=== PATIENT | female | born 1965 ===

== ENCOUNTER 2018-03-14 23:01 | Inpatient (IN) | payer MEDICAID ==
--- NOTE | 2018-03-15 00:36 | C.PDOC ---
History Of Present Illness 52 year old female brought by family directly from airport from the [facility] for SOB and leg edema for the past 2 weeks. Patient has a Hx of CHF with two valve replacements in the past. She reports good compliance with her lasix, not over drinking diuretic. Denies chest, pain, nausea, or vomiting. <Arsen Egan - Last Filed: 03/15/18 00:44> History Per: Patient History/Exam Limitations: no limitations Onset/Duration Of Symptoms: Days Current Symptoms Are (Timing): Still Present Associated Symptoms: Other (Leg edema). denies: Nausea, Vomiting, Chest Pain Exacerbating Factors: None Alleviating Factors: None Recent travel outside of the [place]: Yes <Arsen Egan - Last Filed: 03/15/18 00:44> <John Olson - Last Filed: 03/15/18 02:19> Time Seen by Provider: 03/14/18 23:29 Chief Complaint (Nursing): Abdominal Pain Past Medical History Reviewed: Historical Data, Nursing Documentation, Vital Signs Vital Signs: Last Vital Signs Temp 98 F 03/14/18 23:07 Pulse 69 03/14/18 23:07 Resp 20 03/14/18 23:07 BP 126/95 H 03/14/18 23:07 Pulse Ox 100 03/14/18 23:07 Family History: States: Unknown Family Hx - Social History Hx Alcohol Use: No Hx Substance Use: No - Immunization History Hx Tetanus Toxoid Vaccination: No Hx Influenza Vaccination: No Hx Pneumococcal Vaccination: No <Arsen Egan - Last Filed: 03/15/18 00:44> Vital Signs: Last Vital Signs Temp 98 F 03/14/18 23:07 Pulse 69 03/14/18 23:07 Resp 20 03/14/18 23:07 BP 126/95 H 03/14/18 23:07 Pulse Ox 100 03/15/18 00:46 <John Olson - Last Filed: 03/15/18 02:19> Review Of Systems Constitutional: Negative for: Fever, Chills Cardiovascular: Negative for: Chest Pain, Palpitations Respiratory: Positive for: Shortness of Breath. Negative for: Cough Gastrointestinal: Negative for: Nausea, Vomiting Musculoskeletal: Positive for: Other (Leg edema) Neurological: Negative for: Weakness, Numbness <Arsen Egan Last Filed: 03/15/18 00:44> Physical Exam - Physical Exam Appears: Other (Mild respiratory distress) Skin: Normal Color, Warm, Dry Head: Atraumatic, Normacephalic Eye(s): bilateral: Normal Inspection Oral Mucosa: Moist Neck: Normal, Supple Chest: Symmetrical, No Tenderness Cardiovascular: Rhythm Regular, JVD Respiratory: Rales, No Rhonchi, No Wheezing Gastrointestinal/Abdominal: Soft, No Tenderness, Other (Bloating) Extremity: Other (Lower extremity 4/4 pitting edema with stasis dermatitis) Pulses: Left Dorsalis Pedis: Normal, Right Dorsalis Pedis: Normal Neurological/Psych: Oriented x3, Normal Speech <Arsen Egan - Last Filed: 03/15/18 00:44> ED Course And Treatment O2 Sat by Pulse Oximetry: 100 (Room air) Pulse Ox Interpretation: Normal - Radiology CXR: Interpreted by [place] CXR Interpretation: Yes: Heart Size (+ megaly), Other (+ CHF) Reevaluation Time: 00:45 Reassessment Condition: Unchanged (pending meds) <Arsen Egan - Last Filed: 03/15/18 00:44> - Laboratory Results Result Diagrams: 03/15/18 00:55 03/15/18 00:55 Lab Results: PT 33.2 SECONDS (9.7-12.2) H 03/15/18 00:55 INR 3.0 03/15/18 00:55 Troponin I 0.0350 ng/mL (0.00-0.120) 03/15/18 00:55 NT-Pro-B Natriuret Pep 946 pg/mL (0-900) H 03/15/18 00:55 Total Bilirubin 4.0 mg/dL (0.2-1.3) H 03/15/18 00:55 AST 67 U/L (14-36) H 03/15/18 00:55 ALT 15 U/L (9-52) 03/15/18 00:55 Alkaline Phosphatase 151 U/L (38-126) H 03/15/18 00:55 Total Protein 7.2 g/dL (6.3-8.3) 03/15/18 00:55 Albumin 4.0 g/dL (3.5-5.0) 03/15/18 00:55 Globulin 3.2 gm/dL (2.2-3.9) 03/15/18 00:55 Albumin/Globulin Ratio 1.2 (1.0-2.1) 03/15/18 00:55 ECG: Interpreted By Me, Viewed By Me ECG Rhythm: Atrial Fibrillation, R BBB ECG Interpretation: No Acute Changes, Abnormal Interpretation Of ECG: atrial fibrillation,RBBB, abnormal tracings. Rate From EC <John Olson - Last Filed: 03/15/18 02:19> Medical Decision Making Medical Decision Making: acute on chronic CHF 20# weight gain from baseline severe cardiomegly- consider card echo to eval for EJF <Arsen Egan - Last Filed: 03/15/18 00:44> Disposition Doctor Will See Patient In The: Hospital Counseled Patient/Family Regarding: Studies Performed - Disposition Disposition Time: 01:00 <Arsen Egan - Last Filed: 03/15/18 00:44> Discussed With DrMarlo: Yuri Mckeon - Disposition Disposition Time: 02:19 <John Olson - Last Filed: 03/15/18 02:19> - Disposition Disposition: HOSPITALIZED Condition: GOOD Forms: [employer] (Romansh) - Clinical Impression Clinical Impression: CHF (congestive heart failure) - Scribe Statement The provider has reviewed the documentation as recorded by the Scribe Justin Wahl All medical record entries made by the Scribe were at my direction and personally dictated by me. I have reviewed the chart and agree that the record accurately reflects my personal performance of the history, physical exam, medical decision making, and the department course for this patient. I have also personally directed, reviewed, and agree with the discharge instructions and disposition. <Arsen Egan - Last Filed: 03/15/18 00:44> Physician Patient Turnover Patient Signed Over To: John Olson Handoff Comments: f/u workup and adm to Hospitalists <Arsen Egan Last Filed: 03/15/18 00:44>
[2018-03-15 00:59] LABS: BASO # 0.1 K/uL (0.0-0.2); BASO % 1.3 % (0.0-2.0); EOS # 0.2 K/uL (0.0-0.7); EOS % 2.2 % (0.0-4.0); HEMOGLOBIN 15.4 g/dL (11.0-16.0); LYMPH # 1.1 K/uL (1.0-4.3); LYMPH % 11.7 % (20.0-40.0); MEAN CELL VOLUME 92.7 fL (81.0-99.0); MEAN CORPUSCULAR HEMOGLOBIN 30.2 pg (27.0-31.0); MEAN CORPUSCULAR HGB CONC 32.6 g/dL (33.0-37.0); MEAN PLATELET VOLUME 9.1 fL (7.2-11.7); MONO # 0.7 K/uL (0.0-0.8); MONO % 7.7 % (0.0-10.0); NEUT # 6.9 K/uL (1.8-7.0); NEUT % 77.1 % (50.0-75.0); NRBC % 0.1 % (0.0-2.0); RBC 5.09 Mil/uL (3.80-5.20)
[2018-03-15 01:16] LABS: BLOOD UREA NITROGEN 14 mg/dL (7-17); CALCIUM 9.1 mg/dl (8.6-10.4); GFR NON-AFRICAN AMERICAN > 60
[2018-03-15 01:17] LABS: ALB/GLOB RATIO 1.2 (1.0-2.1); ALT/SGPT 15 U/L (9-52); AST/SGOT 67 U/L (14-36)
[2018-03-15 01:23] LABS: PROTHROMBIN TIME 33.2 SECONDS (9.7-12.2)
[2018-03-15 01:24] LABS: B-TYPE NATRIURETIC PEPTIDE 946 pg/mL (0-900)
--- NOTE | 2018-03-15 04:26 | CP.PCM.HP ---
<Yunior Burns - Last Filed: 03/15/18 07:22> History of Present Illness - History of Present Illness History of Present Illness: PGY1 H&P for Medicine Hospitalist This is a 52 year old female with PMH of CHF, valve replacement x2, questionable atrial fibrillation, HTN who presents to the ED for 1 week history of worsening abdominal distension, weight gain and bilateral leg edema. Pt reports a chronic cough for many years, which is dry, but recently worsening for the past 1 week, exacerbated by walking. Pt endorses orthopnea for many years as well, requiring 2-3 pillows. She states that she has had a decreased appetite for the past 1 week, but has gained 20 pounds (160 lb to 180 lb). Leg edema is described as increased "liquid" in the bilateral legs with redness, itchiness and a s tretching sensation. Denies fever, chills, chest pain, palpitations, abdominal pain, n/v/d, new socks, skin lotion, falls. She returned from the today, after a more than 3 month trip. As per pt, she has had a thoracentesis in the past (unsure when). PMD: in [place] Cardiology: Dr. Debi Fuentes CTS surgery: Avis Wylie PMH: CHF, mitral and aortic bioprosthetic valve replacement (aortic 2007, mitral 2006), questionable atrial fibrillation, HTN. Denies history of liver problem, hepatitis. PSH: valve replacement x2, cholecystectomy 5 years ago Meds: noncompliant with Losartan/HCTZ 100/25 mg daily, Metoprolol tartrate 50 mg PO BID, Spironolactone 25 mg PO daily. Compliant with Lasix 40 mg daily. She alternates between Warfarin 2.5 mg and 5 mg every other day. Allx:denies FHx: diabetes and heart problems. Father age 90 with diabetes. Mother in an accident. SHx: Born in , moved to [facility] in 1999. denies smoking history, social etoh use, denies drug use including IVDA Had a colonoscopy (unsure when), that was normal as per pt. Present on Admission - Present on Admission Any Indicators Present on Admission: No Past Patient History - Past Social History Smoking Status: Never Smoked - PSYCHIATRIC Hx Substance Use: No - SURGICAL HISTORY Hx Surgeries: No Meds Allergies/Adverse Reactions: Allergies Allergy/AdvReac Type Severity Reaction Status Date / Time No Known Allergies Allergy Unverified 03/14/18 23:11 Physical Exam - Constitutional Appears: Non-toxic, No Acute Distress - Head Exam Head Exam: ATRAUMATIC, NORMAL INSPECTION - Eye Exam Eye Exam: EOMI, Scleral icterus - ENT Exam ENT Exam: Mucous Membranes Dry - Respiratory Exam Respiratory Exam: Rales (at the bases bilaterally). absent: Rhonchi, Wheezes, Respiratory Distress, Stridor - Cardiovascular Exam Cardiovascular Exam: Tachycardia, Irregular Rhythm, JVD, +S1, +S2, Systolic Mur mur (holosystolic murmur, heard loudest in mitral valve area) - GI/Abdominal Exam GI & Abdominal Exam: Distended (ascites), Normal Bowel Sounds, Organomegaly (li vanessa edge is 4 finger breadths from costophrenic angle), Soft, Tenderness (RUQ tenderness). absent: Guarding, Rebound, Rigid - Extremities Exam Extremities exam: Positive for: pedal edema (2+ pitting edema to the shins; with erythema and minimal warmth not alleviated by raising the leg), pedal pulses present (1+ PT pulse bilaterally, DP unable to be palpated due to edema. good capillary refill in distal extremities. 2+ pulses bilateral radial pulses). Negative for: normal inspection - Neurological Exam Neurological exam: Alert, Oriented x3 - Psychiatric Exam Psychiatric exam: Normal Affect, Normal Mood - Skin Skin Exam: Dry, Normal Color, Warm Additional comments: (+) telangiectasias (+) jaundice (+) approximately 5 cm by 3 cm nontender bruise to the left buttocks (+) decreased skin turgor Results - Vital Signs Recent Vital Signs: Last Vital Signs Temp 98.4 F 03/15/18 03:52 Pulse 93 H 03/15/18 03:52 Resp 16 03/15/18 03:52 BP 117/87 03/15/18 03:52 Pulse Ox 96 03/15/18 03:52 - Labs Result Diagrams: 03/15/18 00:55 03/15/18 00:55 Labs: Laboratory Results - last 24 hr 03/15/18 03/15/18 03/15/18 00:55 00:55 00:55 WBC 9.0 RBC 5.09 Hgb 15.4 Hct 47.2 H MCV 92.7 MCH 30.2 MCHC 32.6 L RDW 17.0 H Plt Count 278 MPV 9.1 Neut % (Auto) 77.1 H Lymph % (Auto) 11.7 L [place] % (Auto) 7.7 Eos % (Auto) 2.2 Baso % (Auto) 1.3 Neut # (Auto) 6.9 Lymph # (Auto) 1.1 [place] # (Auto) 0.7 Eos # (Auto) 0.2 Baso # (Auto) 0.1 PT 33.2 H INR 3.0 Sodium 136 Potassium 3.8 Chloride 97 L Carbon Dioxide 29 Anion Gap 14 BUN 14 Creatinine 0.8 Est GFR ( Amer) > 60 Est GFR (Non-Af Amer) > 60 Random Glucose 89 Calcium 9.1 Total Bilirubin 4.0 H AST 67 H ALT 15 Alkaline Phosphatase 151 H Troponin I 0.0350 NT-Pro-B Natriuret Pep 946 H Total Protein 7.2 Albumin 4.0 Globulin 3.2 Albumin/Globulin Ratio 1.2 Assessment & Plan - Assessment and Plan (Free Text) Assessment: This is a 52 year old female with PMH of CHF, valve replacement x2, questionable atrial fibrillation, HTN who presents to the ED for 1 week history of worsening abdominal distension, weight gain and bilateral leg edema. 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 Fuentes for information about pt's cardiac history and management) Slow diuresis Metoprolol tartrate 25 mg PO BID No need for asa as pt is on warfarin F/u CXR Hepatic congestion likely secondary to CHF Tbili is 4.0 AST/ALT/ALP is 67/15/151 BNP is 151 Albumin is 4.0 F/u direct bili F/u hepatic us Afib, likely valvular in nature PTT/INR is 33.2/3.0 Continue with pt's warfarin regimen: 2.5 mg one day, 5 mg the next day Dermatitis of lower extremities; likely candidal in nature Clomitrazole topical BID Continue to monitor GI ppx: no indication at this time VTE ppx contraindicated as pt is on Warfarin Case discussed with Dr. Linda Burns PGY1 <Yuri Mckeon P - Last Filed: 03/15/18 08:22> Results - Vital Signs Recent Vital Signs: Last Vital Signs Temp 98.3 F 03/15/18 07:53 Pulse 88 03/15/18 07:53 Resp 18 03/15/18 07:53 BP 128/86 03/15/18 07:53 Pulse Ox 98 03/15/18 07:53 - Labs Result Diagrams: 03/15/18 00:55 03/15/18 00:55 Labs: Laboratory Results - last 24 hr 03/15/18 03/15/18 03/15/18 00:55 00:55 00:55 WBC 9.0 RBC 5.09 Hgb 15.4 Hct 47.2 H MCV 92.7 MCH 30.2 MCHC 32.6 L RDW 17.0 H Plt Count 278 MPV 9.1 Neut % (Auto) 77.1 H Lymph % (Auto) 11.7 L [place] % (Auto) 7.7 Eos % (Auto) 2.2 Baso % (Auto) 1.3 Neut # (Auto) 6.9 Lymph # (Auto) 1.1 [place] # (Auto) 0.7 Eos # (Auto) 0.2 Baso # (Auto) 0.1 PT 33.2 H INR 3.0 Sodium 136 Potassium 3.8 Chloride 97 L Carbon Dioxide 29 Anion Gap 14 BUN 14 Creatinine 0.8 Est GFR ( Amer) > 60 Est GFR (Non-Af Amer) > 60 Random Glucose 89 Calcium 9.1 Total Bilirubin 4.0 H Direct Bilirubin AST 67 H ALT 15 Alkaline Phosphatase 151 H Troponin I 0.0350 NT-Pro-B Natriuret Pep 946 H Total Protein 7.2 Albumin 4.0 Globulin 3.2 Albumin/Globulin Ratio 1.2 03/15/18 05:01 WBC RBC Hgb Hct MCV MCH MCHC RDW Plt Count MPV Neut % (Auto) Lymph % (Auto) [place] % (Auto) Eos % (Auto) Baso % (Auto) Neut # (Auto) Lymph # (Auto) [place] # (Auto) Eos # (Auto) Baso # (Auto) PT INR Sodium Potassium Chloride Carbon Dioxide Anion Gap BUN Creatinine Est GFR ( Amer) Est GFR (Non-Af Amer) Random Glucose Calcium Total Bilirubin Direct Bilirubin 0.6 H AST ALT Alkaline Phosphatase Troponin I NT-Pro-B Natriuret Pep Total Protein Albumin Globulin Albumin/Globulin Ratio Attending/Attestation - Attestation I have personally seen and examined this patient.: Yes I have fully participated in the care of the patient.: Yes I have reviewed all pertinent clinical information: Yes Notes (Text): 03/15/18 08:22 Assessed patient along with the resident, formulated the plan of care as above, agree with documentation.
--- NOTE | 2018-03-15 07:16 | CP.PCM.PN ---
<Mark Wyatt - Last Filed: 03/15/18 16:06> Subjective - Date & Time of Evaluation Date of Evaluation: 03/15/18 Time of Evaluation: 07:16 - Subjective Subjective: PGY1 Medicine Progress Note for Dr. Nieves Using Official Malaysian translation provided by [employer] #[id number]: Attempted to elicit more information from Patient that pertains to her illness. [place] Patient states she has been feeling the above symptoms for x1 week. Patient states she came here to visit her daughter. However, when asked more about her chronic conditions and/or acute complaints, the Patient continues to respond with vague answers. When Patient is asked "why did you fly if you were feeling sick?" Patient responded "I just got on the plane." Otherwise no acute events overnight. No new complaints. Patient denies chest pain, shortness of breath, nausea, vomiting, fever, chills, diarrhea, headache and/or weakness. Objective - Vital Signs/Intake and Output Vital Signs (last 24 hours): Temp Pulse Resp BP Pulse Ox 98.4 F 93 H 16 117/87 96 03/15/18 03:52 03/15/18 03:52 03/15/18 03:52 03/15/18 03:52 03/15/18 03:52 - Labs Labs: 03/15/18 00:55 03/15/18 00:55 PT 33.2 SECONDS (9.7-12.2) H 03/15/18 00:55 INR 3.0 03/15/18 00:55 - Additional Findings Additional findings: - Constitutional Appears: Non-toxic, No Acute Distress - Head Exam Head Exam: ATRAUMATIC, NORMAL INSPECTION - Eye Exam Eye Exam: EOMI, Scleral icterus - ENT Exam ENT Exam: Mucous Membranes Dry - Respiratory Exam Respiratory Exam: Rales (at the bases bilaterally). absent: Rhonchi, Wheezes, Respiratory Distress, Stridor - Cardiovascular Exam Cardiovascular Exam: Tachycardia, Irregular Rhythm, JVD, +S1, +S2, Systolic Murmur (holosystolic murmur, heard loudest in mitral valve area) - GI/Abdominal Exam GI & Abdominal Exam: Distended (ascites), Normal Bowel Sounds, Organomegaly (liver edge is 4 finger breadths from costophrenic angle), Soft, Tenderness (RUQ tenderness). absent: Guarding, Rebound, Rigid - Extremities Exam Extremities exam: Positive for: pedal edema (3+ pitting edema to the shins; with erythema and no warmth, pedal pulses present (1+ PT pulse bilaterally, DP unable to be palpated due to edema. good capillary refill in distal extremities. 2+ pulses bilateral radial pulses). Negative for: normal inspection - Neurological Exam Neurological exam: Alert, Oriented x3 - Psychiatric Exam Psychiatric exam: Normal Affect, Normal Mood - Skin Skin Exam: Dry, Normal Color, Warm Additional comments: (+) telangiectasias (+) jaundice (+) approximately 5 cm by 3 cm non-tender bruise to the left buttocks (+) decreased skin turgor Assessment and Plan - Assessment and Plan (Free Text) Assessment: This is a 52 year old female with PMH of CHF, valve replacement x2, questionable atrial fibrillation, HTN who presents to the ED for 1 week history of worsening abdominal distension, weight gain and bilateral leg edema and erythema. Using Official Malaysian translation provided by [employer] #[id number]: Attempted to elicit more information from Patient that pertains to her illness. [place] Patient states she has been feeling the above symptoms for x1 week. Patient states she came here to visit her daughter. However, when asked more about her chronic conditions and/or acute complaints, the Patient continues to respond with vague answers. When Patient is asked "why did you fly if you were feeling sick?" Patient responded "I just got on the plane." CHF exacerbation; strong suspicion for pericardial effusion Mitral and aortic Bioprosthetic valve replacement (unknown what type of heart failure; will follow-up on ECHO) - Patient is hemodynamically stable at this time - EKG shows A-fib (Patient is on warfarin. INR=3 today) - CXR shows s/p sterniotomy, cardiomegaly, pulmonary edema - Continue lasix PO daily with holding parameters - Monitor I&O - Head of bed at 40 degrees - weight today is 170lbs (continue to monitor daily weight) - BNP is 946 - troponin is 0.0350 - F/u echocardiogram report - Cardiology (Dr. Mims) consulted; recommendations appreciated - Slow diuresis - Metoprolol tartrate 25 mg PO BID - No need for ASA, as Patient is on Warfarin - F/U CXR report - Dietary consult for CHF Hepatic congestion likely secondary to CHF - Tbili is 4.0 - Direct bili 0.6 - AST/ALT/ALP is 67/15/151 - BNP is 151 - Albumin is 4.0 - Follow-up abdominal ultrasound A-fib, likely valvular in nature - PTT/INR is 33.2/3.0 - Goal is between 2.5-3.0 - For tomorrow 03/16: warfarin 2.5mg PO (patient does not recall last dose) - Continue to trend INR - Continue with pt's warfarin regimen: 2.5 mg one day, 5 mg the next day - Dietary consult for warfarin Bilateral Lower Extremity Edema - Likely due to leakage of hemocyderin into subcutaneous tissue (as Patient complains of this starting 4 days ago) - Clomitrazole topical BID - Continue to monitor PPx: GI ppx: no indication at this time VTE ppx contraindicated as pt is on Warfarin Case discussed with Dr. Bradley Wyatt PGY1 <Bradley Nieves J - Last Filed: 03/15/18 20:50> Objective - Vital Signs/Intake and Output Vital Signs (last 24 hours): Temp Pulse Resp BP Pulse Ox 97.6 F 96 H 20 128/69 95 03/15/18 15:41 03/15/18 19:05 03/15/18 15:41 03/15/18 17:40 03/15/18 15:41 - Medications Medications: Current Medications Clotrimazole (Lotrimin 1%) 0 gm TOP BID [facility] Last Admin: 03/15/18 17:45 Dose: Not Given Furosemide (Lasix) 20 mg IVP Q12H [facility] Last Admin: 03/15/18 17:03 Dose: 20 mg Ipratropium Muir (Atrovent) 0.5 mg IH RQ6 [facility] Last Admin: 03/15/18 19:05 Dose: 0.5 mg Lisinopril (Zestril) 10 mg PO DAILY [facility] Metoprolol Tartrate (Lopressor) 25 mg PO BID [facility] Last Admin: 03/15/18 17:40 Dose: 25 mg Potassium Chloride (K-Dur 20 Meq Er Tab) 20 meq PO DAILY [facility] Last Admin: 03/15/18 17:03 Dose: 20 meq Vitamin A (Vitamin A & D Oint Ud Foilpak) 1 ea TOP BID [facility] Last Admin: 03/15/18 17:47 Dose: 1 ea - Labs Labs: 03/15/18 00:55 03/15/18 00:55 PT 33.2 SECONDS (9.7-12.2) H 03/15/18 00:55 INR 3.0 03/15/18 00:55 Attending/Attestation - Attestation I have personally seen and examined this patient.: Yes I have fully participated in the care of the patient.: Yes I have reviewed all pertinent clinical information, including history, physical exam and plan: Yes
[2018-03-15 08:43] LABS: CK-MB 1.01 ng/mL (0.0-3.38); TROPONIN I 0.028 ng/mL (0.00-0.120)
--- NOTE | 2018-03-15 08:43 | RAD ---
HISTORY: SOB, history of by valvular replacement CHF COMPARISON: None available. TECHNIQUE: Chest, one view. FINDINGS: LUNGS: Hypoinflation. Mild pulmonary venous congestion. No focal consolidation. Please note that chest x-ray has limited sensitivity for the detection of pulmonary masses. PLEURA: No significant pleural effusion identified. No definite pneumothorax . CARDIOVASCULAR: Marked enlargement of the cardiac silhouette with CTR approximately 20/28.5. Pericardial effusion not excluded. Median sternotomy wires. OSSEOUS STRUCTURES: Osseous demineralization. Degenerative changes. VISUALIZED UPPER ABDOMEN: Unremarkable. OTHER FINDINGS: None. IMPRESSION: Marked enlargement of the cardiac silhouette with CTR approximately 20/28.5. Pericardial effusion not excluded. Median sternotomy wires. Mild pulmonary venous congestion. Hypoinflation.
[2018-03-15] MEDS: Clotrimazole 1% Cream(30 gm) TOP SCH ×2 (11:08→17:45)
--- NOTE | 2018-03-15 14:15 | RAD ---
Date of service: 03/15/2018 HISTORY: 0700 COMPARISON: 03/15/2018 at 8:56 a.m.. TECHNIQUE: Chest PA and lateral FINDINGS: LINES AND TUBES: None. LUNG AND PLEURA: The lungs are well inflated and clear. There is mild pulmonary venous congestion. No pleural effusion or pneumothorax. HEART AND MEDIASTINUM: Again seen is severe cardiomegaly. No aortic atherosclerotic calcifications present. Status post CABG. The hilar and mediastinal contours are within normal limits. SKELETAL STRUCTURES: The bony structures are within normal limits for the patient's age. VISUALIZED UPPER ABDOMEN: Normal. OTHER FINDINGS: None. IMPRESSION: No acute findings. Persistent severe cardiomegaly.
[2018-03-15] MEDS ORDERED: Potassium Chloride 20 mEq ER Tab PO SCH (14:45)
--- NOTE | 2018-03-15 14:49 | US ---
Date of service: 03/15/2018 HISTORY: hepatic congestion, questionable ascites COMPARISON: None. TECHNIQUE: Grayscale imaging was performed. FINDINGS: LIVER: Measures 17.4 cm. There is diffuse increased echogenicity of the liver parenchyma with nodular contour. No mass. No intrahepatic bile duct dilatation. There is biphasic flow in the portal vein. GALLBLADDER: Surgically absent. COMMON BILE DUCT: Measures 5.0 mm. No stones. No dilatation. PANCREAS: Unremarkable as visualized. No mass. No ductal dilatation. RIGHT KIDNEY: Measures 11.3cm. Normal echogenicity. No calculus, mass, or hydronephrosis. LEFT KIDNEY: Measures 12.0cm. Normal echogenicity. No calculus, mass, or hydronephrosis. SPLEEN: Normal in size and contour. No mass. AORTA: No aneurysmal dilatation. IVC: Unremarkable. OTHER FINDINGS: There is abdominal ascites. IMPRESSION: Cirrhosis of liver and abdominal ascites. 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.
[2018-03-15] MEDS: Vitamins A & D Oint UD Foilpak TOP SCH (17:47)
--- NOTE | 2018-03-15 18:33 | CARD ---
APPROVED REPORT Date of service: 03/15/2018 EXAM: Two-dimensional and M-mode echocardiogram with Doppler and color Doppler. INDICATION Abnormal EKG/Arrhythmia Congestive Heart Failure Surgery/Intervention Status/Post Aortic Valve Replacement: Bioprosthetic Status/Post Mitral Valve Replacement: Bioprosthetic RISK FACTORS Hypertension Diabetes 2D DIMENSIONS IVSd0.9 (0.7-1.1cm)LVDd3.9 (3.9-5.9cm) PWd1.0 (0.7-1.1cm)LA Sefzsi360 (18-58mL) LVDs2.3 (2.5-4.0cm)FS (%) 40.1 % LVEF (%)71.4 (>50%)LVEF (Farris's)64.99 % M-Mode DIMENSIONS IVSd0.87 (0.7-1.1cm)LVDd4.08 (4.0-5.6cm) PWd0.97 (0.7-1.1cm)FS (%) 23 % LVDs3.16 (2.0-3.8cm)LVEF (%)46 (>50%) Aortic Valve AoV Peak Tzlsbjne692.2cm/sAoV VTI47.0cmAO Peak GR.37mmHg AO Mean GR.20mmHg Mitral Valve MV E Peak Gr.20mmHgMV E Mean Gr.7mmHgMV [id number] E/A ratio0.0MVA (PHT)1.79cm2 TDI E/Lateral E'0.0E/Medial E'0.0 Tricuspid Valve TR Peak Xiyzifot470ab/sTR Peak Gr.[id number] LEFT VENTRICLE The left ventricle is normal size. There is normal left ventricular wall thickness. The Ejection Fraction is 55-60%. There is a flattened septum consistent with right ventricle volume and pressure overload. markedly elevated la volume index of 81 mm sqm. RIGHT VENTRICLE The right ventricle is severely dilated. rv Systolic function is moderately reduced. ATRIA The left atrium is severely dilated.6.6 cm. The right atrium is moderately dilated. AORTIC VALVE No aortic regurgitation is present. Bioprosthesis leaflets are thickened, but move well.peak avg of 37 mm of hg. MITRAL VALVE Mitral regurgitation is mild to moderate. bioprosthetic mitral valve with mean gradinet of 8.6 mm of hg. TRICUSPID VALVE wide open leafelts with severe tr. There is severe tricuspid regurgitation. Right ventricular systolic pressure is estimated at 45 mmHg. There is moderate pulmonary hypertension.this is underestimated. PULMONIC VALVE The pulmonary valve is normal in structure. There is mild pulmonic valvular regurgitation. GREAT VESSELS ascending aorta is mildly dilated,4.1 cm. Dilated IVC,3.5 cm with poor inspiration collapse is consistent with elevated right atrial pressure. PERICARDIAL EFFUSION There is no pericardial effusion. <Conclusion> The left ventricle is normal size. The Ejection Fraction is 55-60%. There is a flattened septum consistent with right ventricle volume and pressure overload. markedly elevated la volume index of 81 mm sqm. The right ventricle is severely dilated. rv Systolic function is moderately reduced. The left ventricle is normal size. The left atrium is severely dilated.6.6 cm. The right atrium is moderately dilated. Bioprosthesis leaflets are thickened, but move well.peak avg of 37 mm of hg. bioprosthetic mitral valve with mean gradinet of 8.6 mm of hg. Mitral regurgitation is mild to moderate. There is severe tricuspid regurgitation. Right ventricular systolic pressure is estimated at 45 mmHg. There is moderate pulmonary hypertension.this is underestimated. ascending aorta is mildly dilated,4.1 cm. Dilated IVC with poor inspiration collapse is consistent with elevated right atrial pressure. Dilated IVC,3.5 cm with poor inspiration collapse is consistent with elevated right atrial pressure. suggest delmi,
[2018-03-15] MEDS: Ipratropium 0.02% Inhal Soln (0.5 mg/2.5 ml) UD IH SCH (19:05)
[2018-03-16] MEDS: Ipratropium 0.02% Inhal Soln (0.5 mg/2.5 ml) UD IH SCH ×4 (02:42→20:27)
[2018-03-16 07:18] LABS: BASO # 0.1 K/uL (0.0-0.2); BASO % 1.5 % (0.0-2.0); EOS # 0.2 K/uL (0.0-0.7); HEMOGLOBIN 15.1 g/dL (11.0-16.0); LYMPH # 1.3 K/uL (1.0-4.3); MEAN CELL VOLUME 92.8 fL (81.0-99.0); MEAN CORPUSCULAR HEMOGLOBIN 30.9 pg (27.0-31.0); MEAN CORPUSCULAR HGB CONC 33.3 g/dL (33.0-37.0); MEAN PLATELET VOLUME 9.6 fL (7.2-11.7); MONO # 0.6 K/uL (0.0-0.8); MONO % 8.3 % (0.0-10.0); NEUT # 4.6 K/uL (1.8-7.0); NEUT % 68.2 % (50.0-75.0); NRBC % 0.1 % (0.0-2.0); RBC 4.87 Mil/uL (3.80-5.20); RED CELL DISTRIBUTION WIDTH 17.4 % (11.5-14.5); WHITE BLOOD COUNT 6.7 K/uL (4.8-10.8)
[2018-03-16 07:35] LABS: LDL CHOLESTEROL 92 mg/dL (0-129)
[2018-03-16 07:36] LABS: ALB/GLOB RATIO 1.2 (1.0-2.1); ALBUMIN 3.5 g/dL (3.5-5.0); ALT/SGPT 23 U/L (9-52); AST/SGOT 43 U/L (14-36); BLOOD UREA NITROGEN 19 mg/dL (7-17); CALCIUM 9.3 mg/dl (8.6-10.4); GFR NON-AFRICAN AMERICAN 52; HDL CHOLESTEROL 29 mg/dL (30-70)
[2018-03-16 07:50] LABS: INR 3.1; PROTHROMBIN TIME 33.9 SECONDS (9.7-12.2)
[2018-03-16 08:28] LABS: HEPATITIS B SURFACE AG Negative (NEGATIVE)
[2018-03-16 08:34] LABS: HEPATITIS A IGM NEGATIVE (NEGATIVE); HEPATITIS B CORE AB NEGATIVE (NEGATIVE)
[2018-03-16 08:45] LABS: HEPATITIS C ANTIBODY NEGATIVE (NEGATIVE)
[2018-03-16] MEDS ORDERED: Potassium Chloride 20 mEq ER Tab PO STA (09:01)
[2018-03-16] MEDS: Vitamins A & D Oint UD Foilpak TOP SCH ×2 (09:25→17:36)
[2018-03-16] MEDS: Clotrimazole 1% Cream(30 gm) TOP SCH (09:26)
--- NOTE | 2018-03-16 17:00 | CP.PCM.PN ---
<Tamar Luo - Last Filed: 03/16/18 16:57> Subjective - Date & Time of Evaluation Date of Evaluation: 03/16/18 Time of Evaluation: 07:00 - Subjective Subjective: PGY2- Progress Note for Dr. Nieves Patient seen and examined at bedside and in no acute distress. Patient's daughter at bedside who says patient is feeling much better. Patient says her breathing is better, but she still has some shortness of breath. Patient denies any chest pain, nausea, vomiting, constipation, or diarrhea. Objective - Vital Signs/Intake and Output Vital Signs (last 24 hours): Temp Pulse Resp BP Pulse Ox 97.6 F 94 H 20 109/83 97 03/16/18 16:00 03/16/18 16:00 03/16/18 16:00 03/16/18 16:00 03/16/18 16:00 Intake and Output: 03/16/18 03/16/18 06:59 18:59 Intake Total 240 480 Balance 240 480 - Medications Medications: Current Medications Furosemide (Lasix) 20 mg IVP Q12H [facility] Ipratropium [place] (Atrovent) 0.5 mg IH RQ6 [facility] Last Admin: 03/16/18 13:25 Dose: 0.5 mg Lisinopril (Zestril) 5 mg PO DAILY [facility] Metoprolol Tartrate (Lopressor) 12.5 mg PO BID [facility] Potassium Chloride (K-Dur 20 Meq Er Tab) 40 meq PO DAILY [facility] Vitamin A (Vitamin A & D Oint Ud Foilpak) 1 ea TOP BID [facility] Last Admin: 03/16/18 09:25 Dose: 1 ea Warfarin Sodium (Coumadin) 4 mg PO 1800 ONE Stop: 03/16/18 18:01 - Labs Labs: 03/16/18 07:03 03/16/18 07:03 PT 33.9 SECONDS (9.7-12.2) H 03/16/18 07:03 INR 3.1 H* 03/16/18 07:03 - Additional Findings Additional findings: - Constitutional Appears: Non-toxic, No Acute Distress - Head Exam Head Exam: ATRAUMATIC, NORMAL INSPECTION - Eye Exam Eye Exam: EOMI, Scleral icterus - ENT Exam ENT Exam: Mucous Membranes Dry - Respiratory Exam Respiratory Exam: Rales (at the bases bilaterally). absent: Rhonchi, Wheezes, Respiratory Distress, Stridor - Cardiovascular Exam Cardiovascular Exam: Tachycardia, Irregular Rhythm, JVD, +S1, +S2, Systolic Murmur (holosystolic murmur, heard loudest in mitral valve area) - GI/Abdominal Exam GI & Abdominal Exam: Distended (ascites), Normal Bowel Sounds, Organomegaly (liver edge is 4 finger breadths from costophrenic angle), Soft, Tenderness (RUQ tenderness). absent: Guarding, Rebound, Rigid - Extremities Exam Extremities exam: Positive for: 2+ pitting edema to the shins; with erythema and no warmth, pedal pulses present (1+ PT pulse bilaterally, DP unable to be palpated due to edema. good capillary refill in distal extremities. 2+ pulses bilateral radial pulses). Negative for: normal inspection - Neurological Exam Neurological exam: Alert, Oriented x3 - Psychiatric Exam Psychiatric exam: Normal Affect, Normal Mood - Skin Skin Exam: Dry, Normal Color, Warm Additional comments: (+) telangiectasias (+) jaundice (+) approximately 5 cm by 3 cm non-tender bruise to the left buttocks b/l hemosiderin changes of LE Assessment and Plan - Assessment and Plan (Free Text) Assessment: HF with preserved EF exacerbation Mitral and aortic Bioprosthetic valve replacement - Patient is hemodynamically stable at this time - EKG shows A-fib (Patient is on warfarin. INR=3 today) - CXR shows s/p sterniotomy, cardiomegaly, pulmonary edema - BNP is 946, troponin is 0.0350 - echo (03/16/18): EF 55-60%, flattened septum consistent with right ventricle volume and pressure overload, right ventricle is severely dilated. RV systolic function is moderately reduced. L atrium is dilated 6.6cm. Right atrium is moderately dilated. aortic valve: Bioprosthesis leaflets are thickened, but move well. bioprosthetic mitral valve with mean gradient of 8.6 mmHg. Mitral regurg is mild to moderate. Severe tricuspid regurg. moderate pulmonary hypertension. ascending aorta is mildly dilated, 4.1cm. Dilated IVC with poor inspiration collapse is consistent with elevated right atrial pressure - Cardiology (Dr. Mims) consulted; recommendations appreciated - Monitor I&O, Head of bed at 40 degrees Meds * Lasix 20mg ivp q12h * Lisinopril 5mg po daily * Warfarin 4mg po started on 03/16/18 * Aldactone held 03/09 low BP Hepatic congestion likely secondary to CHF - Tbili is 4.0 - Direct bili 0.6 - AST/ALT/ALP is 67/15/151 - BNP is 151 - Albumin is 4.0 - abdominal u/s (03/15/17): cirrhosis of liver and abdominal ascites. biphasic flow in the portal vein A-fib, likely valvular in nature - INR 3.1 on 03/16/18 - Goal is between 2.5-3.0 - Continue to trend INR - Dietary consult for warfarin -start Warfarin 4mg po daily (instead of alternating 2.5mg and 5mg) on 03/16/18 Bilateral Lower Extremity Edema - Likely due to leakage of hemocyderin into subcutaneous tissue (as Patient complains of this starting 4 days ago) - d/c Clomitrazole topical BID - LE wrapped in soy bandages, PAT stockings ordered - Continue to monitor PPx: GI ppx: no indication at this time VTE ppx contraindicated as pt is on Warfarin Case discussed with Dr. Bradley Nieves <Bradley Nieves J - Last Filed: 03/17/18 20:01> Objective - Vital Signs/Intake and Output Vital Signs (last 24 hours): Temp Pulse Resp BP Pulse Ox 98 F 86 20 94/68 L 97 03/17/18 17:02 03/17/18 17:02 03/17/18 17:02 03/17/18 17:02 03/17/18 15:54 Intake and Output: 03/17/18 03/18/18 18:59 06:59 Intake Total 480 Balance 480 - Medications Medications: Current Medications Docusate Sodium (Colace) 100 mg PO TID [facility] Last Admin: 03/17/18 17:39 Dose: 100 mg Furosemide (Lasix) 20 mg IVP Q12H [facility] Last Admin: 03/17/18 06:21 Dose: 20 mg Ipratropium [place] (Atrovent) 0.5 mg IH RQ6 [facility] Last Admin: 03/17/18 19:30 Dose: 0.5 mg Lisinopril (Zestril) 5 mg PO DAILY [facility] Last Admin: 03/17/18 09:30 Dose: 5 mg Metoprolol Tartrate (Lopressor) 12.5 mg PO BID [facility] Last Admin: 03/17/18 12:15 Dose: 12.5 mg Potassium Chloride (K-Dur 20 Meq Er Tab) 40 meq PO DAILY [facility] Last Admin: 03/17/18 09:28 Dose: 40 meq Vitamin A (Vitamin A & D Oint Ud Foilpak) 1 ea TOP BID [facility] Last Admin: 03/17/18 17:41 Dose: 1 ea - Labs Labs: 03/17/18 08:03 03/17/18 08:03 PT 35.9 SECONDS (9.7-12.2) H 03/17/18 08:03 INR 3.3 H* 03/17/18 08:03 Attending/Attestation - Attestation I have personally seen and examined this patient.: Yes I have fully participated in the care of the patient.: Yes I have reviewed all pertinent clinical information, including history, physical exam and plan: Yes Notes (Text): 03/17/18 20:01 This is a late entry Care of this patient was gone over with resident Dr. Luo. Bradley Nieves D.o.
--- NOTE | 2018-03-16 19:31 | CP.PCM.CON ---
History of Present Illness - History of Present Illness History of Present Illness: CC sob HPI This is a 52 year old female with PMH of CHF, valve replacement x2, questionable atrial fibrillation, HTN who presents to the ED for 1 week history of worsening abdominal distension, weight gain and bilateral leg edema. Pt reports a chronic cough for many years, which is dry, but recently worsening for the past 1 week, exacerbated by walking. Pt endorses orthopnea for many years as well, requiring 2-3 pillows. She states that she has had a decreased appetite for the past 1 week, but has gained 20 pounds (160 lb to 180 lb). Leg edema is described as increased "liquid" in the bilateral legs with redness, itchiness and a stretching sensation. Denies fever, chills, chest pain, palpitations, abdominal pain, n/v/d, new socks, skin lotion, falls. She returned from the today, after a more than 3 month trip. As per pt, she has had a thoracentesis in the past (unsure when). Patient claimed she hasn't taking her medications for a few weeks. Review of Systems - Constitutional Constitutional: Anorexia, Fatigue, Weight Gain, Weakness - EENT Nose/Mouth/Throat: Nasal Congestion - Cardiovascular Cardiovascular: Dyspnea, Dyspnea on Exertion, Edema, Orthopnea, Pedal Edema - Respiratory Respiratory: Dyspnea on Exertion - Musculoskeletal Musculoskeletal: Muscle Weakness Past Patient History - Past Medical History & Family History Past Medical History?: Yes - Past Social History Smoking Status: Never Smoked - CARDIAC Hx Cardiac Disorders: Yes Hx Atrial Fibrillation: Yes Hx Congestive Heart Failure: Yes Hx Peripheral Edema: Yes - PULMONARY Hx Respiratory Disorders: No - NEUROLOGICAL Hx Neurological Disorder: No - HEENT Hx HEENT Problems: No - RENAL Hx Chronic Kidney Disease: No - ENDOCRINE/METABOLIC Hx Endocrine Disorders: No - HEMATOLOGICAL/ONCOLOGICAL Hx Blood Disorders: No - INTEGUMENTARY Hx Dermatological Problems: No - MUSCULOSKELETAL/RHEUMATOLOGICAL Hx Falls: No - GASTROINTESTINAL Hx Gastrointestinal Disorders: No - GENITOURINARY/GYNECOLOGICAL Hx Genitourinary Disorders: No - PSYCHIATRIC Hx Psychophysiologic Disorder: No Hx Substance Use: No - SURGICAL HISTORY Hx Surgeries: No - ANESTHESIA Hx Anesthesia: No Hx Anesthesia Reactions: No Hx Malignant Hyperthermia: No Has any member of the family had a problem w/ anesthesia?: No Meds Allergies/Adverse Reactions: Allergies Allergy/AdvReac Type Severity Reaction Status Date / Time No Known Allergies Allergy Unverified 03/14/18 23:11 - Medications Medications: Current Medications Furosemide (Lasix) 20 mg IVP Q12H [facility] Last Admin: 03/16/18 17:35 Dose: 20 mg Ipratropium [place] (Atrovent) 0.5 mg IH RQ6 [facility] Last Admin: 03/16/18 13:25 Dose: 0.5 mg Lisinopril (Zestril) 5 mg PO DAILY [facility] Metoprolol Tartrate (Lopressor) 12.5 mg PO BID [facility] Last Admin: 03/16/18 17:36 Dose: 12.5 mg Potassium Chloride (K-Dur 20 Meq Er Tab) 40 meq PO DAILY [facility] Vitamin A (Vitamin A & D Oint Ud Foilpak) 1 ea TOP BID [facility] Last Admin: 03/16/18 17:36 Dose: 1 ea Physical Exam - Constitutional Appears: Chronically Ill - Head Exam Head Exam: NORMAL INSPECTION - Eye Exam Eye Exam: absent: Scleral icterus - ENT Exam ENT Exam: Mucous Membranes Moist - Neck Exam Neck exam: Positive for: Full Rom Additional comments: +engorged neck veins - Respiratory Exam Respiratory Exam: Decreased Breath Sounds - Cardiovascular Exam Cardiovascular Exam: Irregular Rhythm - GI/Abdominal Exam GI & Abdominal Exam: Soft Additional comments: +ascites - Extremities Exam Extremities exam: Positive for: pedal edema. Negative for: calf tenderness - Neurological Exam Neurological exam: Alert, Oriented x3 Results - Vital Signs Recent Vital Signs: Last Vital Signs Temp 97.6 F 03/16/18 16:00 Pulse 94 H 03/16/18 16:00 Resp 20 03/16/18 16:00 BP 115/68 03/16/18 17:35 Pulse Ox 97 03/16/18 16:00 - Labs Result Diagrams: 03/16/18 07:03 03/16/18 07:03 Labs: Laboratory Results - last 24 hr 03/16/18 03/16/18 03/16/18 07:03 07:03 07:03 WBC RBC Hgb Hct MCV MCH MCHC RDW Plt Count MPV Neut % (Auto) Lymph % (Auto) Kane % (Auto) Eos % (Auto) Baso % (Auto) Neut # (Auto) Lymph # (Auto) Kane # (Auto) Eos # (Auto) Baso # (Auto) PT 33.9 H INR 3.1 H* Sodium 137 Potassium 3.2 L Chloride 98 Carbon Dioxide 31 H Anion Gap 12 BUN 19 H Creatinine 1.1 Est GFR ( Amer) > 60 Est GFR (Non-Af Amer) 52 Random Glucose 90 Calcium 9.3 Phosphorus 4.4 Magnesium 2.1 Total Bilirubin 3.9 H AST 43 H D ALT 23 Alkaline Phosphatase 142 H Total Protein 6.4 Albumin 3.5 Globulin 2.9 Albumin/Globulin Ratio 1.2 Triglycerides 77 Cholesterol 147 LDL Cholesterol Direct 92 HDL Cholesterol 29 L Free T4 1.85 TSH 3rd Generation 1.07 Hepatitis A IgM Ab Hep Bs Antigen Hep B Core IgM Ab Hepatitis C Antibody HIV 1&2 Antibody Screen 03/16/18 03/16/18 03/16/18 07:03 07:03 07:03 WBC 6.7 RBC 4.87 Hgb 15.1 Hct 45.2 MCV 92.8 MCH 30.9 MCHC 33.3 RDW 17.4 H Plt Count 274 MPV 9.6 Neut % (Auto) 68.2 Lymph % (Auto) 19.0 L Kane % (Auto) 8.3 Eos % (Auto) 3.0 Baso % (Auto) 1.5 Neut # (Auto) 4.6 Lymph # (Auto) 1.3 Kane # (Auto) 0.6 Eos # (Auto) 0.2 Baso # (Auto) 0.1 PT INR Sodium Potassium Chloride Carbon Dioxide Anion Gap BUN Creatinine Est GFR ( Amer) Est GFR (Non-Af Amer) Random Glucose Calcium Phosphorus Magnesium Total Bilirubin AST ALT Alkaline Phosphatase Total Protein Albumin Globulin Albumin/Globulin Ratio Triglycerides Cholesterol LDL Cholesterol Direct HDL Cholesterol Free T4 TSH 3rd Generation Hepatitis A IgM Ab Negative Hep Bs Antigen Negative Hep B Core IgM Ab Negative Hepatitis C Antibody Negative HIV 1&2 Antibody Screen Negative Assessment & Plan - Assessment and Plan (Free Text) Assessment: CHF, right sided- noncompliant with meds Chronic atrial fibrillation Valvular Heart disease, s/p Aortic and Mitral valve replacement Plan: Case discussed with Dr Bradley Nieves Will resume anti CHF regimen, continue nebulizer treatment and anticoagulation
[2018-03-17] MEDS: Ipratropium 0.02% Inhal Soln (0.5 mg/2.5 ml) UD IH SCH ×4 (01:42→19:30)
[2018-03-17 08:08] LABS: BASO # 0.1 K/uL (0.0-0.2); BASO % 1.5 % (0.0-2.0); EOS # 0.2 K/uL (0.0-0.7); HEMOGLOBIN 15.3 g/dL (11.0-16.0); LYMPH # 1.4 K/uL (1.0-4.3); LYMPH % 17.9 % (20.0-40.0); MEAN CELL VOLUME 92.9 fL (81.0-99.0); MEAN CORPUSCULAR HGB CONC 32.3 g/dL (33.0-37.0); MEAN PLATELET VOLUME 9.5 fL (7.2-11.7); MONO # 0.6 K/uL (0.0-0.8); MONO % 8.3 % (0.0-10.0); NEUT # 5.4 K/uL (1.8-7.0); NEUT % 69.3 % (50.0-75.0); NRBC % 0.2 % (0.0-2.0); RBC 5.11 Mil/uL (3.80-5.20); RED CELL DISTRIBUTION WIDTH 17.5 % (11.5-14.5); WHITE BLOOD COUNT 7.8 K/uL (4.8-10.8)
[2018-03-17 08:38] LABS: ALB/GLOB RATIO 1.2 (1.0-2.1); ALBUMIN 3.7 g/dL (3.5-5.0); CALCIUM 9.3 mg/dl (8.6-10.4)
[2018-03-17 08:43] LABS: INR 3.3
[2018-03-17 08:44] LABS: PROTHROMBIN TIME 35.9 SECONDS (9.7-12.2)
[2018-03-17] MEDS: Vitamins A & D Oint UD Foilpak TOP SCH ×2 (09:28→17:41)
[2018-03-17] MEDS: Potassium Chloride 20 mEq ER Tab PO SCH (09:28)
[2018-03-17] MEDS ORDERED: Potassium Chloride 20 mEq ER Tab PO SCH (10:00)
[2018-03-17] MEDS ORDERED: Phytonadione 10 mg/ml Inj (Adult) SC STA (12:59)
--- NOTE | 2018-03-17 17:38 | CP.PCM.PN ---
Subjective - Date & Time of Evaluation Date of Evaluation: 03/17/18 Time of Evaluation: 11:45 - Subjective Subjective: Hospitalist Progress Note Patient was seen and examined at 11:45 AM 03/17/[address] Reji Luo who translated Mosotho Very pleasant Mosotho speaking 52 year old female (PMHx of HF, Mitral/Aortic Valve replacement, Atrial Fibrillation) was admitted on log getter 03/15/18 for complaints of worsening abdominal distention, bilateral leg edema, and cough/SOB after not taking her medications consistently while she was in the [place]. She came straight from the airport to [facility] for evaluation. She was found to be in heart failure exacerbation. Currently upon FULL ROS: NO chest pain NO palpitations SOB and cough are still present but they are better than when she came in NO dysphagia/odynophagia Feels like her abdominal distention is worse Had small bowel movement yesterday 03/16/18 NO burning/pain with urination NO headaches NO new changes in vision NO new changes in hearing NO other complaints upon FULL ROS General: AAOX3. NAD speaking in full sentences HEENT: NCA, Pupils are round/equal/reactive to light, NO lymphadenopathy, NO thyromegaly, NO pharyngeal erythema/exudate Cardio: Irregularly Irregular Resp: Faint inspiratory crackles bilateral basilar area GI: BSx4, soft, distended but not tense, nontender to palpation, attempt was not made to palpate liver and spleen Extremities: Bilateral pitting edema that is now more 2+ (it was 3+ upon admission) from ankles to the tibial tuberosities, red discoloration fromt he ankles to the midtibia bilaterally is now more brownish in color, NO warmth and NO tenderness to palpation, Capillary refill is 2 seconds, Reji Bandages were reapplied to help with the edema Neuro: CN II through XII are grossly intact Assessment and Plan: Right Heart Failure Exacerbation Hx Mitral and Aortic Bioprosthetic Valve Replacement * EKG upon admission shows Atrial Fibrillation * CXR upon admission shows s/p sterniotomy, cardiomegaly, pulmonary edema * BNP is 946, Troponin is 0.0350 * Echocardiogram (03/16/18): EF 55-60%, flattened septum consistent with right ventricle volume and pressure overload, right ventricle is severely dilated. RV systolic function is moderately reduced. Left atrium is dilated 6.6cm. Right atrium is moderately dilated. Aortic valve: Bioprosthesis leaflets are thickened, but move well. Bioprosthetic Mitral v=Valve with mean gradient of 8.6 mmHg. Mitral regurgitation is mild to moderate. Severe Tricuspid regurgitation. Moderate Pulmonary Hypertension. Ascending aorta is mildly dilated, 4.1cm. Dilated IVC with poor inspiration collapse is consistent with elevated right atrial pressure * Cardiology (Dr. Mims) consulted: NO need for JONATHAN at this time * Monitor I&O, Head of bed at 40 degrees Meds * Lasix 20 mg IV Q12h * Lisinopril 5 mg PO daily * Metoprolol 12.5 mg PO 2x/day * Warfarin 4 mg po started on 03/16/18: please note that patient alternated 2.5 mg with 5 mg every other day. To make this easier, 4 mg dose was chosen. * Aldactone held secondary to low BP Cirrhosis/Congestion of Liver/Ascited Likely Secondary to Right Heart Failure * T. Bili, AST and Alkaline Phospatase are elevated * Hepatitis Panel is negative * HIV is negative * Abdominal u/s (03/15/17): Cirrhosis of liver and abdominal ascites. 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 * Bedside Paracentesis attempted by Medicine Team 03/17/18 after giving 1 unit FFP and SC Vitamin K 10 mg and holding Warfarin (procedure was explained and risk/benefits explained and consent was obtained and placed in chart): only 100 ml of clear yellow fluid was able to be removed and sent to lab for analysis: Culture, Albumin, LDH, Glucose, Total Protein, Cell Count w/Differential, and Cytology Hx Atrial Fibrillation * Goal INR should be 2.5 to 3.5 * Continue to monitor INR * Make sure some one from dietary has provided patient with Warfarin diet recommendations * Warfarin 4 mg po started on 03/16/18 but put on HOLD on 03/17/18 in anticipation of Paracentesis: please note that patient alternated 2.5 mg with 5 mg every other day. To make this easier 4 mg dose was chosen. Bilateral Lower Extremity Edema * Likely due to leakage of hemosiderin into subcutaneous tissue (as Patient comp lains of this starting 4 days ago) from edema secondary to Right Heart Failure * Patient was placed on Clomitrazole topical BID upon admission but this was discontinued as this is not a fungal infection * Bilateral LE wrapped in reji bandages, PAT stockings ordered, and patient instructed to keep extremities elevated while in bed PPx: GI ppx: no indication at this time VTE ppx contraindicated as pt is on Warfarin and INR is elevated Colace 100 mg PO 3x/day to help with bowel movements Extensive conversation with patient, her daughter, her son-in-law about compliance with medications. Also explained that the Paracentesis was not a cure but will help improve her presenting symptoms. They expressed understanding. Disposition: Medicine Team please speak with IR Dr. Julián London on Sunday03/18/18 to plan for IR guided paracentesis as this will give patient some relief. Vitamin K administered 03/17/18 and Coumadin held. Once paracentesis occurs, patient should be discharged and instructed to follow up with her PMD and [facility] in [place] (both seen 2 months ago as per patient). F/U Ascites fluid studies from 03/17/18: Culture, Albumin, LDH, Glucose, Total Protein, Cell Count w/Differential, and Cytology Metoprolol 12.5 mg PO 2x/day to resume 03/18/18 at 10 AM Lisinopril 5 mg PO 1x/day to resume 03/18/18 at 2 PM Lasix 20 mg IV Q12H to resume 03/18/18 at 6 AM Bradley Nieves D.O. Objective - Vital Signs/Intake and Output Vital Signs (last 24 hours): Temp Pulse Resp BP Pulse Ox 98 F 86 20 94/68 L 97 03/17/18 17:02 03/17/18 17:02 03/17/18 17:02 03/17/18 17:02 03/17/18 15:54 Intake and Output: 03/17/18 03/17/18 06:59 18:59 Intake Total 480 Balance 480 - Medications Medications: Current Medications Docusate Sodium (Colace) 100 mg PO TID [facility] Last Admin: 03/17/18 13:24 Dose: 100 mg Furosemide (Lasix) 20 mg IVP Q12H [facility] Last Admin: 03/17/18 06:21 Dose: 20 mg Ipratropium [place] (Atrovent) 0.5 mg IH RQ6 [facility] Last Admin: 03/17/18 15:08 Dose: Not Given Lisinopril (Zestril) 5 mg PO DAILY [facility] Last Admin: 03/17/18 09:30 Dose: 5 mg Metoprolol Tartrate (Lopressor) 12.5 mg PO BID [facility] Last Admin: 03/17/18 12:15 Dose: 12.5 mg Potassium Chloride (K-Dur 20 Meq Er Tab) 40 meq PO DAILY [facility] Last Admin: 03/17/18 09:28 Dose: 40 meq Vitamin A (Vitamin A & D Oint Ud Foilpak) 1 ea TOP BID [facility] Last Admin: 03/17/18 09:28 Dose: 1 ea - Labs Labs: 03/17/18 08:03 03/17/18 08:03 PT 35.9 SECONDS (9.7-12.2) H 03/17/18 08:03 INR 3.3 H* 03/17/18 08:03
[2018-03-17 20:12] LABS: BODY FLUID TYPE PLEURAL/THORACENTESI
[2018-03-17 20:43] LABS: BF GROSS APPEARANCE CLOUDY (CLEAR)
--- NOTE | 2018-03-17 21:18 | VASCLAB ---
Date of service: 03/15/2018 PROCEDURE: Lower Extremity Venous Duplex Exam. HISTORY: Edema, rule out DVT PRIORS: None. TECHNIQUE: Bilateral common femoral, femoral, popliteal and posterior tibial, peroneal and great saphenous veins were evaluated. Flow was assessed with color Doppler, compressibility, assessment of phasic flow and augmentation response. Report prepared by JOSE Corral FINDINGS: RIGHT: 1. Common Femoral Vein: 1.1. Compressibility - Fully compressible: Thrombus - None : Flow - Phasic: Augmentation -Normal: Reflux - None. 2. Femoral Vein: 2.1. Compressibility - Fully compressible: Thrombus - None : Flow - Phasic: Augmentation -Normal: Reflux - None. 3. Popliteal Vein: 3.1. Compressibility - Fully compressible: Thrombus - None : Flow - Phasic: Augmentation -Normal: Reflux - None. 4. Posterior Tibial Vein: 4.1. Compressibility - Fully compressible: Thrombus - None: Flow - Phasic: Augmentation -Normal: Reflux - None. 5. Peroneal Vein: 5.1. Compressibility - Fully compressible: Thrombus - None: Flow - Phasic: Augmentation -Normal: Reflux - None. 6. Great Saphenous Vein: 6.1. Compressibility - Fully compressible: Thrombus - None: Flow - Phasic: Augmentation - Normal: Reflux - None. LEFT: 1. Common Femoral Vein: 1.1. Compressibility - Fully compressible: Thrombus - None: Flow - Phasic: Augmentation -Normal: Reflux - None. 2. Femoral Vein: 2.1. Compressibility - Fully compressible: Thrombus - None: Flow - Phasic: Augmentation -Normal: Reflux - None. 3. Popliteal Vein: 3.1. Compressibility - Fully compressible: Thrombus - None : Flow - Phasic: Augmentation -Normal: Reflux - None. 4. Posterior Tibial Vein: 4.1. Compressibility - Fully compressible: Thrombus - None: Flow - Phasic: Augmentation -Normal: Reflux - None. 5. Peroneal Vein: 5.1. Compressibility - Fully compressible: Thrombus - None: Flow - Phasic: Augmentation -Normal: Reflux - None. 6. Great Saphenous Vein: 6.1. Compressibility - Fully compressible: Thrombus - None: Flow - Phasic: Augmentation - Normal: Reflux - None. OTHER FINDINGS: Bilateral edema. IMPRESSION: Right: No evidence of deep or superficial vein thrombosis of the right lower extremity. Normal valve function noted of the right side. Left: No evidence of deep or superficial vein thrombosis of the left lower extremity. Normal valve function noted of the left side.
[2018-03-17 21:50] LABS: BODY FLUID MONO/MACROPHAGE 8 % (0-0); BODY FLUID TOTAL COUNT 100 (0-0)
[2018-03-18] MEDS: Ipratropium 0.02% Inhal Soln (0.5 mg/2.5 ml) UD IH SCH ×4 (01:24→19:28)
[2018-03-18 07:30] LABS: BASO # 0.1 K/uL (0.0-0.2); BASO % 1.2 % (0.0-2.0); EOS # 0.2 K/uL (0.0-0.7); HEMOGLOBIN 15.4 g/dL (11.0-16.0); LYMPH # 1.2 K/uL (1.0-4.3); LYMPH % 15.9 % (20.0-40.0); MEAN CELL VOLUME 92.5 fL (81.0-99.0); MEAN CORPUSCULAR HEMOGLOBIN 31.3 pg (27.0-31.0); MEAN CORPUSCULAR HGB CONC 33.8 g/dL (33.0-37.0); MEAN PLATELET VOLUME 9.7 fL (7.2-11.7); MONO # 0.6 K/uL (0.0-0.8); MONO % 8.3 % (0.0-10.0); NEUT # 5.6 K/uL (1.8-7.0); NEUT % 72.6 % (50.0-75.0); NRBC % 0.1 % (0.0-2.0); RBC 4.91 Mil/uL (3.80-5.20); RED CELL DISTRIBUTION WIDTH 17.2 % (11.5-14.5); WHITE BLOOD COUNT 7.8 K/uL (4.8-10.8)
[2018-03-18 07:46] LABS: ALB/GLOB RATIO 1.3 (1.0-2.1); ALBUMIN 3.7 g/dL (3.5-5.0); CALCIUM 9.3 mg/dl (8.6-10.4)
[2018-03-18 08:03] LABS: INR 2.5; PROTHROMBIN TIME 27.8 SECONDS (9.7-12.2)
--- NOTE | 2018-03-18 08:31 | CP.PCM.PN ---
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 denies any other acute events overnight, denies CP SOB FC NV. Pt feeling better but would like to have abd distention solved Objective - Vital Signs/Intake and Output Vital Signs (last 24 hours): Temp Pulse Resp BP Pulse Ox 97.9 F 68 20 109/76 95 03/18/18 07:54 03/18/18 07:54 03/18/18 07:54 03/18/18 07:54 03/18/18 07:54 - Medications Medications: Current Medications Docusate Sodium (Colace) 100 mg PO TID [facility] Last Admin: 03/17/18 17:39 Dose: 100 mg Furosemide (Lasix) 20 mg IVP Q12H [facility] Last Admin: 03/18/18 06:21 Dose: Not Given Ipratropium [place] (Atrovent) 0.5 mg IH RQ6 [facility] Last Admin: 03/18/18 07:28 Dose: 0.5 mg Lisinopril (Zestril) 5 mg PO DAILY [facility] Last Admin: 03/17/18 09:30 Dose: 5 mg Metoprolol Tartrate (Lopressor) 12.5 mg PO BID [facility] Last Admin: 03/17/18 12:15 Dose: 12.5 mg Potassium Chloride (K-Dur 20 Meq Er Tab) 40 meq PO DAILY [facility] Last Admin: 03/17/18 09:28 Dose: 40 meq Vitamin A (Vitamin A & D Oint Ud Foilpak) 1 ea TOP BID [facility] Last Admin: 03/17/18 17:41 Dose: 1 ea - Labs Labs: 03/18/18 07:00 03/18/18 07:00 PT 27.8 SECONDS (9.7-12.2) H D 03/18/18 07:00 INR 2.5 D 03/18/18 07:00 Assessment and Plan - Assessment and Plan (Free Text) Plan: Right Heart Failure Exacerbation Hx Mitral and Aortic Bioprosthetic Valve Replacement * EKG upon admission shows Atrial Fibrillation * CXR upon admission shows s/p sterniotomy, cardiomegaly, pulmonary edema * BNP is 946, Troponin is 0.0350 * Echocardiogram (03/16/18): EF 55-60%, flattened septum consistent with right ventricle volume and pressure overload, right ventricle is severely dilated. RV systolic function is moderately reduced. Left atrium is dilated 6.6cm. Right atrium is moderately dilated. Aortic valve: Bioprosthesis leaflets are thickened, but move well. Bioprosthetic Mitral v=Valve with mean gradient of 8.6 mmHg. Mitral regurgitation is mild to moderate. Severe Tricuspid regurgitation. Moderate Pulmonary Hypertension. Ascending aorta is mildly dilated, 4.1cm. Dilated IVC with poor inspiration collapse is consistent with elevated right atrial pressure * Cardiology (Dr. Mims) consulted: NO need for JONATHAN at this time * Monitor I&O, Head of bed at 40 degrees Meds * Lasix 20 mg IV Q12h * Lisinopril 5 mg PO daily * Metoprolol 12.5 mg PO 2x/day * Warfarin 4 mg po started on 03/16/18: please note that patient alternated 2.5 mg with 5 mg every other day. To make this easier, 4 mg dose was chosen. * Aldactone held secondary to low BP Cirrhosis/Congestion of Liver/Ascited Likely Secondary to Right Heart Failure * G Consulted Dr Ifeanyi aguiar recdonnie * T. Bili, AST and Alkaline Phospatase are elevated * Hepatitis Panel is negative * HIV is negative * Abdominal u/s (03/15/17): Cirrhosis of liver and abdominal ascites. 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 * Bedside Paracentesis attempted by Medicine Team 03/17/18 after giving 1 unit FFP and SC Vitamin K 10 mg and holding Warfarin (procedure was explained and risk/benefits explained and consent was obtained and placed in chart): only 100 ml of clear yellow fluid was able to be removed and sent to lab for analysis: Culture, Albumin, LDH, Glucose, Total Protein, Cell Count w/Differential, and Cytology Hx Atrial Fibrillation * Goal INR should be 2.5 to 3.5 * Continue to monitor INR * Make sure some one from dietary has provided patient with Warfarin diet recommendations * Warfarin 4 mg po started on 03/16/18 but put on HOLD on 03/17/18 in anticipation of Paracentesis: please note that patient alternated 2.5 mg with 5 mg every other day. To make this easier 4 mg dose was chosen. Bilateral Lower Extremity Edema * Likely due to leakage of hemosiderin into subcutaneous tissue (as Patient complains of this starting 4 days ago) from edema secondary to Right Heart Failure * Patient was placed on Clomitrazole topical BID upon admission but this was discontinued as this is not a fungal infection * Bilateral LE wrapped in soy bandages, PAT stockings ordered, and patient instructed to keep extremities elevated while in bed PPx: GI ppx: no indication at this time VTE ppx contraindicated as pt is on Warfarin and INR is elevated Colace 100 mg PO 3x/day to help with bowel movements Extensive conversation with patient, her daughter, her son-in-law about compliance with medications. Also explained that the Paracentesis was not a cure but will help improve her presenting symptoms. They expressed understanding. Disposition: Medicine Team please speak with IR Dr. Julián London on Sunday03/18/18 to plan for IR guided paracentesis as this will give patient some relief. Vitamin K administered 03/17/18 and Coumadin held. Once paracentesis occurs, patient should be discharged and instructed to follow up with her PMD and [facility] in [place] (both seen 2 months ago as per patient). F/U Ascites fluid studies from 03/17/18: Culture, Albumin, LDH, Glucose, Total Protein, Cell Count w/Differential, and Cytology Metoprolol 12.5 mg PO 2x/day to resume 03/18/18 at 10 AM Lisinopril 5 mg PO 1x/day to resume 03/18/18 at 2 PM Lasix 20 mg IV Q12H to resume 03/18/18 at 6 AM <Stephany Ho V - Last Filed: 03/18/18 22:51> Objective - Vital Signs/Intake and Output Vital Signs (last 24 hours): Temp Pulse Resp BP Pulse Ox 97.6 F 95 H 20 116/87 95 03/18/18 16:19 03/18/18 16:19 03/18/18 16:19 03/18/18 18:50 03/18/18 16:19 - Medications Medications: Current Medications Docusate Sodium (Colace) 100 mg PO TID [facility] Last Admin: 03/18/18 18:50 Dose: 100 mg Furosemide (Lasix) 20 mg IVP Q12H [facility] Last Admin: 03/18/18 18:50 Dose: 20 mg Ipratropium [place] (Atrovent) 0.5 mg IH RQ6 [facility] Last Admin: 03/18/18 19:28 Dose: 0.5 mg Lisinopril (Zestril) 5 mg PO DAILY [facility] Last Admin: 03/17/18 09:30 Dose: 5 mg Metoprolol Tartrate (Lopressor) 12.5 mg PO BID [facility] Last Admin: 03/18/18 18:50 Dose: 12.5 mg Potassium Chloride (K-Dur 20 Meq Er Tab) 40 meq PO DAILY [facility] Last Admin: 03/18/18 09:25 Dose: 40 meq Vitamin A (Vitamin A & D Oint Ud Foilpak) 1 ea TOP BID [facility] Last Admin: 03/18/18 18:51 Dose: 1 ea - Labs Labs: 03/18/18 07:00 03/18/18 07:00 PT 27.8 SECONDS (9.7-12.2) H D 03/18/18 07:00 INR 2.5 D 03/18/18 07:00 Attending/Attestation - Attestation I have personally seen and examined this patient.: Yes I have fully participated in the care of the patient.: Yes I have reviewed all pertinent clinical information, including history, physical exam and plan: Yes Notes (Text): This is a 52 year old Female PMHx of Hx Mitral and Aortic Bioprosthetic Valve Replacement on Coumadin therapy, history of atrial fibrillation on coumadin and rate control agent metoprolol; comes abdominal distension, weight gain, and leg edema suspected secondary to right sided heart failure given hx of valvular dis ease. Patient noted she has gained "20 lbs" in the past 3 weeks in the abdomen and the legs. Legs are compressed with pat stockings. Attempt by hospitalist, Dr Vicente over the weekend for paracentesis, about 100cc fluid collected. Patient had received 1 unit of FFP and vitamin K but INR has improved from 3.3 to 2.5. Will give 1 unit of FFP tonight; to see if IR will attempt paracentesis tomorrow. Robby urbano notes prior occasional alcohol hx, she has never been told she has liver problems; strongly suspecting cardiac cirrhosis; will obtain GI eval to rule out other etiologies. Patient is on lasix however blood pressure is borderline low will continue to follow. I spoke with patient and patient's daughter at bedside. Assessment/Plan 1) Right sided Heart Failure Exacerbation secondary to Valve Disease Hx Mitral and Aortic Bioprosthetic Valve Replacement Assessment/Plan * Cardiology (Dr. Mims) consulted: NO need for JONATHAN at this time * EKG upon admission shows Atrial Fibrillation * CXR upon admission shows s/p sterniotomy, cardiomegaly, pulmonary edema * BNP is 946, Troponin is 0.0350 * Echocardiogram (03/16/18): EF 55-60%, flattened septum consistent with right kevin tricle volume and pressure overload, right ventricle is severely dilated. RV systolic function is moderately reduced. Left atrium is dilated 6.6cm. Right atrium is moderately dilated. Aortic valve: Bioprosthesis leaflets are thickened, but move well. Bioprosthetic Mitral v=Valve with mean gradient of 8.6 mmHg. Mitral regurgitation is mild to moderate. Severe Tricuspid regurgitation. Moderate Pulmonary Hypertension. Ascending aorta is mildly dilated, 4.1cm. Dilated IVC with poor inspiration collapse is consistent with elevated right atrial pressure * Monitor I&O, Head of bed at 40 degrees Meds * Lasix 20 mg IV Q12h * Lisinopril 5 mg PO daily * Metoprolol 12.5 mg PO 2x/day * Warfarin 4 mg po started on 03/16/18: please note that patient alternated 2.5 mg with 5 mg every other day. To make this easier, 4 mg dose was chosen. * hold warfarin tonight; remains therapuetic however awaiting for IR par acentesis * give 1 unit of FFP tonight; f/u INR * Aldactone held secondary to low BP 2) Cirrhosis/Congestion of Liver/Ascites Likely Secondary to Right Heart Failure * G Consulted Dr Suggs for initial workup for cirrhosis f.u recs * T. Bili, AST and Alkaline Phospatase are elevated * Hepatitis Panel is negative * HIV is negative * Abdominal u/s (03/15/17): Cirrhosis of liver and abdominal ascites. 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 * Bedside Paracentesis attempted by Medicine Team 03/17/18 after giving 1 unit FFP and SC Vitamin K 10 mg and holding Warfarin (procedure was explained and risk/benefits explained and consent was obtained and placed in chart): only 100 ml of clear yellow fluid was able to be removed and sent to lab for analysis: Culture, Albumin, LDH, Glucose, Total Protein, Cell Count w/Differential, and Cytology * Pending IR paracentesis; however elevated INR while on coumadin therapy 3) Hx Atrial Fibrillation * Goal INR should be 2.5 to 3.5 * Continue to monitor INR * Make sure some one from dietary has provided patient with Warfarin diet recommendations * Warfarin 4 mg po started on 03/16/18 but put on HOLD on 03/17/18 in anticipation of Paracentesis: please note that patient alternated 2.5 mg with 5 mg every other day. To make this easier 4 mg dose was chosen. * will order 1 unit of FFP to be given tonight for possible IR attempt at paracenteis; f/u INR tomorrow 4) Bilateral Lower Extremity Edema * Likely due to leakage of hemosiderin into subcutaneous tissue (as Patient complains of this starting 4 days ago) from edema secondary to Right Heart Failure * Patient was placed on Clomitrazole topical BID upon admission but this was discontinued as this is not a fungal infection * Bilateral LE wrapped in soy bandages, PAT stockings ordered, and patient instructed to keep extremities elevated while in bed * improving while in stockings * dvt ruled out on venous doppler read on 03/17/18 5) PPx: * GI ppx: no indication at this time * VTE ppx; patient has therapuetic INR while on coumadin * f.u INR to reverse for attempt for IR for paracentesis * Colace 100 mg PO 3x/day to help with bowel movements Disposition: Patient's INR 2.5 therapeutic for atrial fib; 1 unit of FFP to be given tonight; f/u INR in AM for possible paracentesis by IR; order for GI eval given no prior workup for cirrhosis though strongly suspected cardiac cirrhosis
[2018-03-18] MEDS: Vitamins A & D Oint UD Foilpak TOP SCH ×2 (09:25→18:51)
[2018-03-18] MEDS: Potassium Chloride 20 mEq ER Tab PO SCH (09:25)
[2018-03-19] MEDS: Ipratropium 0.02% Inhal Soln (0.5 mg/2.5 ml) UD IH SCH ×4 (01:28→19:09)
--- NOTE | 2018-03-19 07:32 | CP.PCM.PN ---
<Jose Meyer - Last Filed: 03/19/18 16:10> Subjective - Date & Time of Evaluation Date of Evaluation: 03/19/18 Time of Evaluation: 09:24 - Subjective Subjective: HOSPITALIST SERVICE Pt seen and examined at bedside with daughter. Denies chest pain sob fc nv or any acute events overnight. pt reports persistent abodiminal discomfort and low urine output Objective - Vital Signs/Intake and Output Vital Signs (last 24 hours): Temp Pulse Resp BP Pulse Ox 97.9 F 88 20 115/92 H 99 03/19/18 05:09 03/19/18 05:09 03/19/18 05:09 03/19/18 05:25 03/18/18 23:05 - Medications Medications: Current Medications Docusate Sodium (Colace) 100 mg PO TID [facility] Last Admin: 03/18/18 18:50 Dose: 100 mg Furosemide (Lasix) 20 mg IVP Q12H [facility] Last Admin: 03/19/18 05:25 Dose: 20 mg Ipratropium [place] (Atrovent) 0.5 mg IH RQ6 [facility] Last Admin: 03/19/18 01:28 Dose: 0.5 mg Lisinopril (Zestril) 5 mg PO DAILY [facility] Last Admin: 03/17/18 09:30 Dose: 5 mg Metoprolol Tartrate (Lopressor) 12.5 mg PO BID [facility] Last Admin: 03/18/18 18:50 Dose: 12.5 mg Potassium Chloride (K-Dur 20 Meq Er Tab) 40 meq PO DAILY [facility] Last Admin: 03/18/18 09:25 Dose: 40 meq Vitamin A (Vitamin A & D Oint Ud Foilpak) 1 ea TOP BID [facility] Last Admin: 03/18/18 18:51 Dose: 1 ea - Labs Labs: 03/18/18 07:00 03/18/18 07:00 PT 27.8 SECONDS (9.7-12.2) H D 03/18/18 07:00 INR 2.5 D 03/18/18 07:00 - Additional Findings Additional findings: General: AAOX3. NAD speaking in full sentences HEENT: NCA, Pupils are round/equal/reactive to light, NO lymphadenopathy, NO thyromegaly, NO pharyngeal erythema/exudate Cardio: Irregularly Irregular Resp: Faint inspiratory crackles bilateral basilar area GI: BSx4, soft, distended but not tense, nontender to palpation, attempt was not made to palpate liver and spleen, Liver palpable 5inches below rib margin, positive quiver sign Extremities: Bilateral pitting edema that is now more 2+ (it was 3+ upon admission) from ankles to the tibial tuberosities, red discoloration fromt he ankles to the midtibia bilaterally is now more brownish in color, NO warmth and NO tenderness to palpation, Capillary refill is 2 seconds, Reji Bandages were r eapplied to help with the edema Neuro: CN II through XII are grossly intact Assessment and Plan - Assessment and Plan (Free Text) Assessment: Right Heart Failure Exacerbation Hx Mitral and Aortic Bioprosthetic Valve Replacement * EKG upon admission shows Atrial Fibrillation * CXR upon admission shows s/p sterniotomy, cardiomegaly, pulmonary edema * BNP is 946, Troponin is 0.0350 * Echocardiogram (03/16/18): EF 55-60%, flattened septum consistent with right ventricle volume and pressure overload, right ventricle is severely dilated. RV systolic function is moderately reduced. Left atrium is dilated 6.6cm. Right atrium is moderately dilated. Aortic valve: Bioprosthesis leaflets are thickened, but move well. Bioprosthetic Mitral v=Valve with mean gradient of 8.6 mmHg. Mitral regurgitation is mild to moderate. Severe Tricuspid regurgitation. Moderate Pulmonary Hypertension. Ascending aorta is mildly dilated, 4.1cm. Dilated IVC with poor inspiration collapse is consistent with elevated right atrial pressure * Cardiology (Dr. Mims) consulted: NO need for JONATHAN at this time * Monitor I&O, Head of bed at 40 degrees Meds * Lasix 20 mg IV Q12h * Lisinopril 5 mg PO daily * Metoprolol 12.5 mg PO 2x/day * Warfarin 4 mg po held * Heparin Drip @10, stop at 5am for paracentesis tmrw * Aldactone held secondary to low BP Cirrhosis/Congestion of Liver/Ascited Likely Secondary to Right Heart Failure * G Consulted Dr Ifeanyi aguiar recs * T. Bili, AST and Alkaline Phospatase are elevated * Paracentesis tmrw w/ Dr Lnodon * Hepatitis Panel is negative * HIV is negative * Abdominal u/s (03/15/17): Cirrhosis of liver and abdominal ascites. 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 * Bedside Paracentesis attempted by Medicine Team 03/17/18 after giving 1 unit FFP and SC Vitamin K 10 mg and holding Warfarin (procedure was explained and risk/benefits explained and consent was obtained and placed in chart): only 100 ml of clear yellow fluid was able to be removed and sent to lab for analysis: Culture, Albumin, LDH, Glucose, Total Protein, Cell Count w/Differential, and Cytology * Paracentesis not done today by Dr London bc INR 1.6, will do it tmrw Urinary retention (03/19) Renal /Bladder US shows retaining 260cc urine, no hydronephrosis no stones straight cath monitor strict I&Os Consider Nephro consult for retention Hx Atrial Fibrillation * Goal INR should be 2.5 to 3.5 * Continue to monitor INR * Make sure some one from dietary has provided patient with Warfarin diet recommendations * Warfarin 4 mg po started on 03/16/18 but put on HOLD on 03/17/18 in anticipation of Paracentesis: please note that patient alternated 2.5 mg with 5 mg every other day. To make this easier 4 mg dose was chosen. Bilateral Lower Extremity Edema * Likely due to leakage of hemosiderin into subcutaneous tissue (as Patient complains of this starting 4 days ago) from edema secondary to Right Heart Failure * Patient was placed on Clomitrazole topical BID upon admission but this was discontinued as this is not a fungal infection * Bilateral LE wrapped in reji bandages, PAT stockings ordered, and patient instructed to keep extremities elevated while in bed PPx: GI ppx: no indication at this time VTE ppx contraindicated as pt is on Warfarin and INR is elevated Colace 100 mg PO 3x/day to help with bowel movements Extensive conversation with patient, her daughter, her son-in-law about comp liance with medications. Also explained that the Paracentesis was not a cure but will help improve her presenting symptoms. They expressed understanding. Disposition: Medicine Team please speak with IR Dr. Julián London on Sunday03/18/18 to plan for IR guided paracentesis on 03/20 as this will give patient some relief. Vitamin K administered 03/17/18 and Coumadin held. Once paracentesis occurs, patient should be discharged and instructed to follow up with her PMD and Day Care Director in [place] (both seen 2 months ago as per patient). F/U Ascites fluid studies from 03/17/18: Culture, Albumin, LDH, Glucose, Total Protein, Cell Count w/Differential, and Cytology Metoprolol 12.5 mg PO 2x/day to resume 03/18/18 at 10 AM Lisinopril 5 mg PO 1x/day to resume 03/18/18 at 2 PM Lasix 20 mg IV Q12H to resume 03/18/18 at 6 AM <Stephany Ho V - Last Filed: 03/20/18 09:53> Objective - Vital Signs/Intake and Output Vital Signs (last 24 hours): Temp Pulse Resp BP Pulse Ox 98 F 89 20 103/72 98 03/20/18 08:00 03/20/18 08:00 03/20/18 08:00 03/20/18 08:00 03/20/18 08:00 Intake and Output: 03/20/18 03/20/18 06:59 18:59 Intake Total 551.6 Output Total 400 Balance 151.6 - Medications Medications: Current Medications Docusate Sodium (Colace) 100 mg PO TID [facility] Last Admin: 03/20/18 09:17 Dose: Not Given Furosemide (Lasix) 20 mg IVP Q12H [facility] Last Admin: 03/20/18 06:29 Dose: 20 mg Ipratropium [place] (Atrovent) 0.5 mg IH RQ6 [facility] Last Admin: 03/20/18 07:10 Dose: 0.5 mg Lisinopril (Zestril) 5 mg PO DAILY [facility] Last Admin: 03/20/18 09:18 Dose: Not Given Metoprolol Tartrate (Lopressor) 12.5 mg PO BID [facility] Last Admin: 03/20/18 09:17 Dose: Not Given Potassium Chloride (K-Dur 20 Meq Er Tab) 40 meq PO DAILY [facility] Last Admin: 03/20/18 09:17 Dose: Not Given Vitamin A (Vitamin A & D Oint Ud Foilpak) 1 ea TOP BID [facility] Last Admin: 03/20/18 09:18 Dose: Not Given - Labs Labs: 03/20/18 04:51 03/20/18 04:51 PT 17.5 SECONDS (9.7-12.2) H 03/20/18 04:51 INR 1.6 03/20/18 04:51 APTT 73 SECONDS (21-34) H D 03/20/18 04:51 Attending/Attestation - Attestation I have personally seen and examined this patient.: Yes I have fully participated in the care of the patient.: Yes I have reviewed all pertinent clinical information, including history, physical exam and plan: Yes Notes (Text): This is a 52 year old Female PMHx of Hx Mitral and Aortic Bioprosthetic Valve Replacement on Coumadin therapy, history of atrial fibrillation on coumadin and rate control agent metoprolol; comes abdominal distension, weight gain, and leg edema suspected secondary to right sided heart failure given hx of valvular disease. Patient noted she has gained "20 lbs" in the past 3 weeks in the abdomen and the legs. Legs are compressed with pat stockings. Attempt by hospitalist, Dr Vicente over the weekend for paracentesis, about 100cc fluid collected. Patient had received 1 unit of FFP and vitamin K but INR has improved from 3.3 to 2.5. Patient received a unit of fresh frozen plasma overnight. INR improved to 1.6. Patient to placed on heparin drip until she is going for paracentesis with interventional radiologist. Resident has spoken with IR unit patient is scheduled for tomorrow Sunday with IR. Patient also reports that she is not been urinating well did speak with nurse Lulu as well. We did order a renal bladder ultrasound which noted that there is prevoid about 200 cc. I did put an order for a urine Villal[place] for more adequate urine output as well as to any urinary retention. We will hold heparin drip at 5 AM for paracentesis for tomorrow and then we will need to bridge patient back with Coumadin for atrial fib. Patient's family updated at bedside. Pending GI eval. Assessment/Plan 1) Right sided Heart Failure Exacerbation secondary to Valve Disease Hx Mitral and Aortic Bioprosthetic Valve Replacement Assessment/Plan * Cardiology (Dr. Mims) consulted: NO need for JONATHAN at this time * EKG upon admission shows Atrial Fibrillation * CXR upon admission shows s/p sterniotomy, cardiomegaly, pulmonary edema * BNP is 946, Troponin is 0.0350 * Echocardiogram (03/16/18): EF 55-60%, flattened septum consistent with right ventricle volume and pressure overload, right ventricle is severely dilated. RV systolic function is moderately reduced. Left atrium is dilated 6.6cm. Right atrium is moderately dilated. Aortic valve: Bioprosthesis leaflets are thickened, but move well. Bioprosthetic Mitral v=Valve with mean gradient of 8.6 mmHg. Mitral regurgitation is mild to moderate. Severe Tricuspid regurgitation. Moderate Pulmonary Hypertension. Ascending aorta is mildly dilated, 4.1cm. Dilated IVC with poor inspiration collapse is consistent with elevated right atrial pressure * Monitor I&O, Head of bed at 40 degrees Meds * Lasix 20 mg IV Q12h * Lisinopril 5 mg PO daily * Metoprolol 12.5 mg PO 2x/day * Warfarin 4 mg po started on 03/16/18: please note that patient alternated 2.5 mg with 5 mg every other day. To make this easier, 4 mg dose was chosen. * hold warfarin tonight; remains therapuetic however awaiting for IR paracentesis * give 1 unit of FFP 02/15 * Aldactone held secondary to low BP 2) Cirrhosis/Congestion of Liver/Ascites Likely Secondary to Right Heart Failure * G Consulted Dr Suggs for initial workup for cirrhosis f.u recs * T. Bili, AST and Alkaline Phospatase are elevated * Hepatitis Panel is negative * HIV is negative * Abdominal u/s (03/15/17): Cirrhosis of liver and abdominal ascites. 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 * Bedside Paracentesis attempted by Medicine Team 03/17/18 after giving 1 unit FFP and SC Vitamin K 10 mg and holding Warfarin (procedure was explained and risk/benefits explained and consent was obtained and placed in chart): only 100 ml of clear yellow fluid was able to be removed and sent to lab for analysis: Culture, Albumin, LDH, Glucose, Total Protein, Cell Count w/Differential, and Cytology * Pending IR paracentesis; however elevated INR while on coumadin therapy; improved to 1.6 3) Hx Atrial Fibrillation * Goal INR should be 2.5 to 3.5 * Continue to monitor INR * Make sure some one from dietary has provided patient with Warfarin diet recommendations * Warfarin 4 mg po started on 03/16/18 but put on HOLD on 03/17/18 in anticipation of Paracentesis: please note that patient alternated 2.5 mg with 5 mg every other day. To make this easier 4 mg dose was chosen. * Given additional 1 unit of FFP on 03/18; INR: 1.6; patient placed on heparin drip; will be held at 5AM for paracentesis; will need to be bridged back to Coumadin post paracentesis 4) Bilateral Lower Extremity Edema * Likely due to leakage of hemosiderin into subcutaneous tissue (as Patient complains of this starting 4 days ago) from edema secondary to Right Heart Failure * Patient was placed on Clomitrazole topical BID upon admission but this was discontinued as this is not a fungal infection * Bilateral LE wrapped in reji bandages, PAT stockings ordered, and patient instructed to keep extremities elevated while in bed * improving while in stockings * dvt ruled out on venous doppler read on 03/17/18 5) PPx: * GI ppx: no indication at this time * VTE ppx; patient has therapuetic INR while on coumadin * f.u INR to reverse for attempt for IR for paracentesis; * Colace 100 mg PO 3x/day to help with bowel movements Disposition: Patient's INR 1.6 therapeutic for atrial fib; s/p 1 unit of FFP on 03/18; pending GI eval given no prior workup for cirrhosis though strongly suspected cardiac cirrhosis; possible paracenteis 03/20 with ascites fluid s tudies ordered/
[2018-03-19 07:58] LABS: BASO # 0.1 K/uL (0.0-0.2); BASO % 1.2 % (0.0-2.0); EOS # 0.2 K/uL (0.0-0.7); EOS % 2.3 % (0.0-4.0); HEMOGLOBIN 14.9 g/dL (11.0-16.0); LYMPH # 1.2 K/uL (1.0-4.3); LYMPH % 14.6 % (20.0-40.0); MEAN CELL VOLUME 92.4 fL (81.0-99.0); MEAN CORPUSCULAR HEMOGLOBIN 30.2 pg (27.0-31.0); MEAN CORPUSCULAR HGB CONC 32.7 g/dL (33.0-37.0); MEAN PLATELET VOLUME 9.6 fL (7.2-11.7); MONO # 0.7 K/uL (0.0-0.8); NEUT % 72.9 % (50.0-75.0); NRBC % 0.3 % (0.0-2.0); RBC 4.94 Mil/uL (3.80-5.20); RED CELL DISTRIBUTION WIDTH 16.8 % (11.5-14.5); WHITE BLOOD COUNT 8.3 K/uL (4.8-10.8)
[2018-03-19 08:00] LABS: INR 1.6; PROTHROMBIN TIME 17.9 SECONDS (9.7-12.2)
[2018-03-19 08:07] LABS: ALB/GLOB RATIO 1.2 (1.0-2.1); ALBUMIN 3.6 g/dL (3.5-5.0); ALT/SGPT 24 U/L (9-52); AST/SGOT 38 U/L (14-36); BLOOD UREA NITROGEN 26 mg/dL (7-17); CALCIUM 9.3 mg/dl (8.6-10.4); GFR NON-AFRICAN AMERICAN 58
[2018-03-19] MEDS: Potassium Chloride 20 mEq ER Tab PO SCH (09:06)
[2018-03-19] MEDS: Vitamins A & D Oint UD Foilpak TOP SCH ×2 (09:06→17:41)
[2018-03-19] MEDS ORDERED: Heparin25000 units/250ml 1/2NS 25,000 UNITS/250 ML BAG IV PRN (13:00)
--- NOTE | 2018-03-19 15:18 | US ---
Date of service: 03/19/2018 PROCEDURE: Renal ultrasound/urinary bladder. HISTORY: no urinary output, worsening CHF COMPARISON: Abdominal ultrasound performed 03/15/18 TECHNIQUE: Sonogram of the kidneys. Sonogram of the urinary bladder. FINDINGS: RIGHT KIDNEY: Measures: 10.1 x 4.7 x 4.3 cm. No obstructing calculus, hydronephrosis, or renal cyst identified. LEFT KIDNEY: Measures: 9.8 x 4.5 x 4.6 cm. No obstructing calculus, hydronephrosis, or renal cyst identified. OTHER FINDINGS: Prevoid urinary bladder measures 9.7 x 5.2 x 8.8 cm, calculated volume 234.7 mL. Patient unable to void and postvoid residual could not be determined. Urinary bladder wall appears thickened measuring approximately 6 mm. Bilateral ureteral jets are identified. Ascites within noted in the right lower and left lower quadrants. IMPRESSION: No obstructing calculus, hydronephrosis, or renal cyst identified. Prevoid urinary bladder measures 9.7 x 5.2 x 8.8 cm, calculated volume 234.7 mL. Patient unable to void and postvoid residual could not be determined. Urinary bladder wall appears thickened measuring approximately 6 mm. Recommend correlation with urinalysis. Bilateral ureteral jets are identified. Ascites within noted in the right lower and left lower quadrants.
[2018-03-20] MEDS: Ipratropium 0.02% Inhal Soln (0.5 mg/2.5 ml) UD IH SCH ×4 (01:15→19:52)
[2018-03-20 04:54] LABS: EOS # 0.2 K/uL (0.0-0.7); HEMOGLOBIN 15.1 g/dL (11.0-16.0); LYMPH # 1.3 K/uL (1.0-4.3); MEAN PLATELET VOLUME 9.6 fL (7.2-11.7); MONO # 0.8 K/uL (0.0-0.8); MONO % 9.3 % (0.0-10.0); NEUT # 5.8 K/uL (1.8-7.0); NRBC % 0.3 % (0.0-2.0)
[2018-03-20 05:03] LABS: BASO # 0.1 K/uL (0.0-0.2); BASO % 1.4 % (0.0-2.0); LYMPH % 15.4 % (20.0-40.0); MEAN CELL VOLUME 92.7 fL (81.0-99.0); MEAN CORPUSCULAR HEMOGLOBIN 29.2 pg (27.0-31.0); MEAN CORPUSCULAR HGB CONC 31.5 g/dL (33.0-37.0); NEUT % 70.9 % (50.0-75.0); RBC 5.17 Mil/uL (3.80-5.20); RED CELL DISTRIBUTION WIDTH 17.1 % (11.5-14.5); WHITE BLOOD COUNT 8.2 K/uL (4.8-10.8)
[2018-03-20 05:04] LABS: INR 1.6; PROTHROMBIN TIME 17.5 SECONDS (9.7-12.2)
[2018-03-20 05:10] LABS: ALB/GLOB RATIO 1.2 (1.0-2.1); ALBUMIN 3.5 g/dL (3.5-5.0); CALCIUM 9.2 mg/dl (8.6-10.4)
[2018-03-20] MEDS: Potassium Chloride 20 mEq ER Tab PO SCH (09:17)
[2018-03-20] MEDS: Vitamins A & D Oint UD Foilpak TOP SCH ×2 (09:18→17:30)
--- NOTE | 2018-03-20 09:30 | CP.PCM.PN ---
Subjective - Date & Time of Evaluation Date of Evaluation: 03/20/18 Time of Evaluation: 09:23 - Subjective Subjective: HOSPITALIST SERVICE Pt seen and examined at bedside, reports persistent abdominal distention, denies any pain in the siegel, denies any chest pain sob fc nv. Pt understands she will get paracent today then olesya maloney home to follow up w/ Gurdeep berry Objective - Vital Signs/Intake and Output Vital Signs (last 24 hours): Temp Pulse Resp BP Pulse Ox 98 F 89 20 103/72 98 03/20/18 08:00 03/20/18 08:00 03/20/18 08:00 03/20/18 08:00 03/20/18 08:00 Intake and Output: 03/20/18 03/20/18 06:59 18:59 Intake Total 551.6 Output Total 400 Balance 151.6 - Medications Medications: Current Medications Docusate Sodium (Colace) 100 mg PO TID [facility] Last Admin: 03/20/18 09:17 Dose: Not Given Furosemide (Lasix) 20 mg IVP Q12H [facility] Last Admin: 03/20/18 06:29 Dose: 20 mg Ipratropium [place] (Atrovent) 0.5 mg IH RQ6 [facility] Last Admin: 03/20/18 07:10 Dose: 0.5 mg Lisinopril (Zestril) 5 mg PO DAILY [facility] Last Admin: 03/20/18 09:18 Dose: Not Given Metoprolol Tartrate (Lopressor) 12.5 mg PO BID [facility] Last Admin: 03/20/18 09:17 Dose: Not Given Potassium Chloride (K-Dur 20 Meq Er Tab) 40 meq PO DAILY [facility] Last Admin: 03/20/18 09:17 Dose: Not Given Vitamin A (Vitamin A & D Oint Ud Foilpak) 1 ea TOP BID [facility] Last Admin: 03/20/18 09:18 Dose: Not Given - Labs Labs: 03/20/18 04:51 03/20/18 04:51 PT 17.5 SECONDS (9.7-12.2) H 03/20/18 04:51 INR 1.6 03/20/18 04:51 APTT 73 SECONDS (21-34) H D 03/20/18 04:51 - Additional Findings Additional findings: General: AAOX3. NAD speaking in full sentences HEENT: NCA, Pupils are round/equal/reactive to light, NO lymphadenopathy, NO thyromegaly, NO pharyngeal erythema/exudate Cardio: Irregularly Irregular Resp: Faint inspiratory crackles bilateral basilar area GI: BSx4, soft, distended but not tense, nontender to palpation, attempt was not made to palpate liver and spleen, Liver palpable 5inches below rib margin, positive quiver sign Extremities: Bilateral pitting edema that is now more 2+ (it was 3+ upon admission) from ankles to the tibial tuberosities, red discoloration fromt he ankles to the midtibia bilaterally is now more brownish in color, NO warmth and NO tenderness to palpation, Capillary refill is 2 seconds, Reji Bandages were reapplied to help with the edema Neuro: CN II through XII are grossly intact Assessment and Plan - Assessment and Plan (Free Text) Assessment: 52F admitted for HFpEF, liver chirrosis and ascites Right Heart Failure Exacerbation Hx Mitral and Aortic Bioprosthetic Valve Replacement * EKG upon admission shows Atrial Fibrillation * CXR upon admission shows s/p sterniotomy, cardiomegaly, pulmonary edema * BNP is 946, Troponin is 0.0350 * Echocardiogram (03/16/18): EF 55-60%, flattened septum consistent with right ventricle volume and pressure overload, right ventricle is severely dilated. RV systolic function is moderately reduced. Left atrium is dilated 6.6cm. Right atrium is moderately dilated. Aortic valve: Bioprosthesis leaflets are thickened, but move well. Bioprosthetic Mitral v=Valve with mean gradient of 8.6 mmHg. Mitral regurgitation is mild to moderate. Severe Tricuspid regur gitation. Moderate Pulmonary Hypertension. Ascending aorta is mildly dilated, 4.1cm. Dilated IVC with poor inspiration collapse is consistent with elevated right atrial pressure * Cardiology (Dr. Mims) consulted: NO need for JONATHAN at this time * Monitor I&O, Head of bed at 40 degrees Meds * Lasix 20 mg IV Q12h * Lisinopril 5 mg PO daily * Metoprolol 12.5 mg PO 2x/day * Warfarin 4 mg po held * Heparin Drip to be restarted pending f/u PTT, will bridge to warfarin * d/c home when INR >2 * Aldactone held secondary to low BP Cirrhosis/Congestion of Liver/Ascited Likely Secondary to Right Heart Failure * G Consulted Dr Suggs f.u recs * T. Bili, AST and Alkaline Phospatase are elevated * Paracentesis today w/ Dr London * 2L of straw colored fluid removed * f/u para fluid analysis * Hepatitis Panel is negative * HIV is negative * Abdominal u/s (03/15/17): Cirrhosis of liver and abdominal ascites. 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 * Bedside Paracentesis attempted by Medicine Team 03/17/18 after giving 1 unit FFP and SC Vitamin K 10 mg and holding Warfarin (procedure was explained and risk/benefits explained and consent was obtained and placed in chart): only 100 ml of clear yellow fluid was able to be removed and sent to lab for analysis: Culture, Albumin, LDH, Glucose, Total Protein, Cell Count w/Differential, and Cytology * Paracentesis not done today by Dr London bc INR 1.6, will do it tmrw Urinary retention (03/19) Renal /Bladder US shows retaining 260cc urine, no hydronephrosis no stones straight cath monitor strict I&Os Consider Nephro consult for retention Hx Atrial Fibrillation * Goal INR should be 2.5 to 3.5 * Continue to monitor INR * Make sure some one from dietary has provided patient with Warfarin diet recom mendations * Warfarin will be bridged with Heparin drip pending PTT Bilateral Lower Extremity Edema * Likely due to leakage of hemosiderin into subcutaneous tissue (as Patient complains of this starting 4 days ago) from edema secondary to Right Heart Failure * Patient was placed on Clomitrazole topical BID upon admission but this was discontinued as this is not a fungal infection * Bilateral LE wrapped in reji bandages, PAT stockings ordered, and patient instructed to keep extremities elevated while in bed PPx: GI ppx: no indication at this time VTE ppx contraindicated as pt is on Warfarin and INR is elevated Colace 100 mg PO 3x/day to help with bowel movements Extensive conversation with patient, her daughter, her son-in-law about complian ce with medications. Also explained that the Paracentesis was not a cure but will help improve her presenting symptoms. They expressed understanding. Disposition: Once INR therapeutic, patient should be discharged and instructed to follow up with her PMD and Gas Plant Dispatcher in [place] (both seen 2 months ago as per patient). F/U Ascites fluid studies from 03/20/18: Culture, Albumin, LDH, Glucose, Total Protein, Cell Count w/Differential, and Cytology Metoprolol 12.5 mg PO 2x/day to resume 03/18/18 at 10 AM Lisinopril 5 mg PO 1x/day to resume 03/18/18 at 2 PM Lasix 20 mg IV Q12H
--- NOTE | 2018-03-20 09:41 | PCM.SURG1 ---
Surgeon's Initial Post Op Note - Surgeon's Notes Surgeon: Julián London MD Health Safety Engineer: NONE Type of Anesthesia: Local Pre-Operative Diagnosis: Ascites Operative Findings: US showed small amount of ascites Post-Operative Diagnosis: Ascites Operation Performed: US guided paracentesis Specimen/Specimens Removed: 2 liters of straw colored fluid Estimated Blood Loss: EBL {In ML}: 0 Blood Products Given: N/A Drains Used: No Drains Post-Op Condition: Fair Date of Surgery/Procedure: 03/20/18 Time of Surgery/Procedure: 09:35
--- NOTE | 2018-03-20 11:19 | US ---
Date of Procedure: PROCEDURE: Ultrasound-guided paracentesis, CPT 23281 Medications: 7 cc 1% Lidocaine HISTORY: Ascites, abdominal pain TECHNIQUE: Following informed consent , the patient was placed supine on the stretcher and the site was marked. A limited abdominal ultrasound was performed that showed a small amount of intra-abdominal fluid. Procedural time out was called and the Pt's abdomen was marked and prepped and draped in the usual sterile fashion. Ultrasound-guided large volume paracentesis performed. A total of 2 liters of straw colored fluid was removed without complication. IMPRESSION: Ultrasound-guided paracentesis.
[2018-03-20 12:02] LABS: INR 1.5; PROTHROMBIN TIME 16.3 SECONDS (9.7-12.2)
[2018-03-20] MEDS: Heparin25000 units/250ml 1/2NS 25,000 UNITS/250 ML BAG IV PRN (17:17)
[2018-03-21] MEDS: Ipratropium 0.02% Inhal Soln (0.5 mg/2.5 ml) UD IH SCH ×4 (01:30→19:52)
[2018-03-21 07:15] LABS: BASO # 0.2 K/uL (0.0-0.2); BASO % 2.2 % (0.0-2.0); EOS # 0.2 K/uL (0.0-0.7); EOS % 2.1 % (0.0-4.0); HEMOGLOBIN 15.3 g/dL (11.0-16.0); LYMPH # 1.5 K/uL (1.0-4.3); LYMPH % 18.7 % (20.0-40.0); MEAN CELL VOLUME 93.1 fL (81.0-99.0); MEAN CORPUSCULAR HEMOGLOBIN 29.8 pg (27.0-31.0); MEAN PLATELET VOLUME 9.4 fL (7.2-11.7); MONO # 0.7 K/uL (0.0-0.8); MONO % 8.7 % (0.0-10.0); NEUT # 5.4 K/uL (1.8-7.0); NEUT % 68.3 % (50.0-75.0); NRBC % 0.4 % (0.0-2.0); RBC 5.14 Mil/uL (3.80-5.20); RED CELL DISTRIBUTION WIDTH 17.4 % (11.5-14.5); WHITE BLOOD COUNT 7.9 K/uL (4.8-10.8)
[2018-03-21 07:27] LABS: ALB/GLOB RATIO 1.2 (1.0-2.1); ALBUMIN 3.5 g/dL (3.5-5.0); CALCIUM 9.1 mg/dl (8.6-10.4)
--- NOTE | 2018-03-21 07:28 | CP.PCM.PN ---
Subjective - Date & Time of Evaluation Date of Evaluation: 03/21/18 Time of Evaluation: 07:26 - Subjective Subjective: HOSPITALIST SERVICE Pt s/e at bedside, pt reports gassy feeling, reports no pain with siegel, no abdominal pains, pt denies fevers chill SOB NV overnight. No acute events overnight endorsed from nurising Objective - Vital Signs/Intake and Output Vital Signs (last 24 hours): Temp Pulse Resp BP Pulse Ox 97.5 F L 78 20 100/68 96 03/20/18 23:10 03/21/18 01:00 03/20/18 23:10 03/21/18 06:13 03/20/18 23:10 Intake and Output: 03/21/18 03/21/18 06:59 18:59 Intake Total 637.8 Output Total 400 Balance 237.8 - Medications Medications: Current Medications Docusate Sodium (Colace) 100 mg PO TID [facility] Last Admin: 03/20/18 17:30 Dose: 100 mg Furosemide (Lasix) 20 mg IVP Q12H [facility] Last Admin: 03/21/18 06:13 Dose: 20 mg Heparin Sodium/Sodium Chloride (Heparin 39686 Units/250ml 1/2 Normal Saline) 25,000 units in 250 mls @ 8.614 mls/hr IV .Q24H PRN; Protocol PRN Reason: PROTOCOL Last Admin: 03/20/18 17:17 Dose: 10 units/kg/hr, 8.614 mls/hr Ipratropium [place] (Atrovent) 0.5 mg IH RQ6 [facility] Last Admin: 03/21/18 01:30 Dose: Not Given Lisinopril (Zestril) 5 mg PO DAILY [facility] Last Admin: 03/20/18 14:19 Dose: 5 mg Metoprolol Tartrate (Lopressor) 12.5 mg PO BID [facility] Last Admin: 03/20/18 17:24 Dose: 12.5 mg Potassium Chloride (K-Dur 20 Meq Er Tab) 40 meq PO DAILY [facility] Last Admin: 03/20/18 09:17 Dose: Not Given Vitamin A (Vitamin A & D Oint Ud Foilpak) 1 ea TOP BID [facility] Last Admin: 03/20/18 17:30 Dose: 1 ea - Labs Labs: 03/21/18 07:05 03/20/18 04:51 PT 16.3 SECONDS (9.7-12.2) H 03/20/18 11:42 INR 1.5 03/20/18 11:42 APTT 68 SECONDS (21-34) H D 03/20/18 23:27 - Additional Findings Additional findings: General: AAOX3. NAD speaking in full sentences HEENT: NCA, Pupils are round/equal/reactive to light, NO lymphadenopathy, NO thyromegaly, NO pharyngeal erythema/exudate Cardio: Irregularly Irregular Resp: Faint inspiratory crackles bilateral basilar area GI: BSx4, soft, distended but not tense, nontender to palpation, attempt was not made to palpate liver and spleen, Liver palpable 5inches below rib margin, positive quiver sign Extremities: Bilateral pitting edema that is now more 2+ (it was 3+ upon admission) from ankles to the tibial tuberosities, red discoloration fromt he ankles to the midtibia bilaterally is now more brownish in color, NO warmth and NO tenderness to palpation, Capillary refill is 2 seconds, Reji Bandages were reapplied to help with the edema Neuro: CN II through XII are grossly intact Assessment and Plan - Assessment and Plan (Free Text) Assessment: 52F admitted for HFpEF, liver chirrosis and ascites Right Heart Failure Exacerbation Hx Mitral and Aortic Bioprosthetic Valve Replacement * EKG upon admission shows Atrial Fibrillation * CXR upon admission shows s/p sterniotomy, cardiomegaly, pulmonary edema * BNP is 946, Troponin is 0.0350 * Echocardiogram (03/16/18): EF 55-60%, flattened septum consistent with right ventricle volume and pressure overload, right ventricle is severely dilated. RV systolic function is moderately reduced. Left atrium is dilated 6.6cm. Right atrium is moderately dilated. Aortic valve: Bioprosthesis leaflets are thickened, but move well. Bioprosthetic Mitral v=Valve with mean gradient of 8.6 mmHg. Mitral regurgitation is mild to moderate. Severe Tricuspid regurgitation. Moderate Pulmonary Hypertension. Ascending aorta is mildly dilated, 4.1cm. Dilated IVC with poor inspiration collapse is consistent with elevated right atrial pressure * Cardiology (Dr. Mims) consulted: NO need for JONATHAN at this time * Monitor I&O, Head of bed at 40 degrees Meds * Lasix 20 mg IV Q12h * Lisinopril 5 mg PO daily * Metoprolol 12.5 mg PO 2x/day * Warfarin 5 mg po @ 1800 tonight * Heparin Drip to be restarted pending f/u PTT, will bridge to warfarin * Aldactone held secondary to low BP * Simethicone given once Cirrhosis/Congestion of Liver/Ascited Likely Secondary to Right Heart Failure * G Consulted Dr Suggs f.u recs * T. Bili, AST and Alkaline Phospatase are elevated * Paracentesis today w/ Dr London * 2L of straw colored fluid removed * f/u para fluid analysis * Hepatitis Panel is negative * HIV is negative * Abdominal u/s (03/15/17): Cirrhosis of liver and abdominal ascites. 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 * Bedside Paracentesis attempted by Medicine Team 03/17/18 after giving 1 unit FFP and SC Vitamin K 10 mg and holding Warfarin (procedure was explained and risk/benefits explained and consent was obtained and placed in chart): only 100 ml of clear yellow fluid was able to be removed and sent to lab for analysis: Culture, Albumin, LDH, Glucose, Total Protein, Cell Count w/Differential, and Cytology * Paracentesis not done today by Dr London bc INR 1.6, will do it tmrw Urinary retention (03/19) Renal /Bladder US shows retaining 260cc urine, no hydronephrosis no stones straight cath monitor strict I&Os Consider Nephro consult for retention Hx Atrial Fibrillation * Goal INR should be 2.5 to 3.5 * Continue to monitor INR * Make sure some one from dietary has provided patient with Warfarin diet recommendations * Warfarin will be bridged with Heparin drip pending PTT Bilateral Lower Extremity Edema * Likely due to leakage of hemosiderin into subcutaneous tissue (as Patient complains of this starting 4 days ago) from edema secondary to Right Heart Failure * Patient was placed on Clomitrazole topical BID upon admission but this was discontinued as this is not a fungal infection * Bilateral LE wrapped in reji bandages, PAT stockings ordered, and patient instructed to keep extremities elevated while in bed PPx: GI ppx: no indication at this time VTE ppx contraindicated as pt is on Warfarin and INR is elevated Colace 100 mg PO 3x/day to help with bowel movements Extensive conversation with patient, her daughter, her son-in-law about compliance with medications. Also explained that the Paracentesis was not a cure but will help improve her presenting symptoms. They expressed understanding. Disposition: Once INR therapeutic, patient should be discharged and instructed to follow up with her PMD and Manager Truck in [place] (both seen 2 months ago as per patient). F/U Ascites fluid studies from 03/20/18: Culture, Albumin, LDH, Glucose, Total Protein, Cell Count w/Differential, and Cytology
[2018-03-21] MEDS ORDERED: Simethicone 80 mg Chewtab PO ONE (08:00)
[2018-03-21] MEDS: Vitamins A & D Oint UD Foilpak TOP SCH ×2 (10:21→18:05)
[2018-03-21] MEDS: Potassium Chloride 20 mEq ER Tab PO SCH (10:22)
[2018-03-21 12:06] LABS: INR 1.4; PROTHROMBIN TIME 15.2 SECONDS (9.7-12.2)
[2018-03-21] MEDS: Heparin25000 units/250ml 1/2NS 25,000 UNITS/250 ML BAG IV PRN (23:51)
[2018-03-22] MEDS: Ipratropium 0.02% Inhal Soln (0.5 mg/2.5 ml) UD IH SCH ×4 (01:32→19:21)
[2018-03-22 06:37] LABS: INR 1.5; PROTHROMBIN TIME 16.7 SECONDS (9.7-12.2)
[2018-03-22 06:45] LABS: ALB/GLOB RATIO 1.2 (1.0-2.1); ALBUMIN 3.4 g/dL (3.5-5.0); ALT/SGPT 21 U/L (9-52); AST/SGOT 37 U/L (14-36); BLOOD UREA NITROGEN 28 mg/dL (7-17); CALCIUM 8.9 mg/dl (8.6-10.4); GFR NON-AFRICAN AMERICAN 58
--- NOTE | 2018-03-22 06:55 | CP.PCM.PN ---
Subjective - Date & Time of Evaluation Date of Evaluation: 03/22/18 Time of Evaluation: 09:15 - Subjective Subjective: PGY1 Medicine progress note for Dr. Ho Pt was seen and examined at bedside. Pt is resting comfortably. She reports some sob, but states that she feel much better overall. She denies fever, chills, chest pain, abdominal pain, n/v/d, dizziness, headache, numbness or tingling, visual changes, leg pain or swelling, bleeding Still endorses some itchiness of the legs. Objective - Vital Signs/Intake and Output Vital Signs (last 24 hours): Temp Pulse Resp BP Pulse Ox 97.8 F 81 20 99/76 L 96 03/21/18 23:00 03/22/18 01:00 03/21/18 23:00 03/22/18 06:16 03/21/18 23:00 Intake and Output: 03/21/18 03/22/18 18:59 06:59 Intake Total 428.8 250 Output Total 500 400 Balance -71.2 -150 - Medications Medications: Current Medications Docusate Sodium (Colace) 100 mg PO TID [facility] Last Admin: 03/21/18 18:02 Dose: 100 mg Furosemide (Lasix) 20 mg IVP Q12H [facility] Last Admin: 03/22/18 06:16 Dose: Not Given Heparin Sodium/Sodium Chloride (Heparin 01403 Units/250ml 1/2 Normal Saline) 25,000 units in 250 mls @ 8.614 mls/hr IV .Q24H PRN; Protocol PRN Reason: PROTOCOL Last Admin: 03/21/18 23:51 Dose: 10 units/kg/hr, 8.614 mls/hr Ipratropium [place] (Atrovent) 0.5 mg IH RQ6 [facility] Last Admin: 03/22/18 01:32 Dose: Not Given Lisinopril (Zestril) 5 mg PO DAILY [facility] Last Admin: 03/21/18 10:22 Dose: 5 mg Metoprolol Tartrate (Lopressor) 12.5 mg PO BID [facility] Last Admin: 03/21/18 18:05 Dose: Not Given Potassium Chloride (K-Dur 20 Meq Er Tab) 40 meq PO DAILY [facility] Last Admin: 03/21/18 10:22 Dose: 40 meq Vitamin A (Vitamin A & D Oint Ud Foilpak) 1 ea TOP BID [facility] Last Admin: 03/21/18 18:05 Dose: 1 ea - Labs Labs: 03/21/18 07:05 03/22/18 06:22 PT 16.7 SECONDS (9.7-12.2) H 03/22/18 06:22 INR 1.5 03/22/18 06:22 APTT 88 SECONDS (21-34) H D 03/21/18 11:44 - Additional Findings Additional findings: - Constitutional Appears: Non-toxic, No Acute Distress - Head Exam Head Exam: ATRAUMATIC, NORMAL INSPECTION - Eye Exam Eye Exam: EOMI, Scleral icterus (slight) - ENT Exam ENT Exam: Mucous Membranes Moist - Respiratory Exam Respiratory Exam: Rales (at the bases bilaterally). absent: Rhonchi, Wheezes, Respiratory Distress, Stridor - Cardiovascular Exam Cardiovascular Exam: Tachycardia, Irregular Rhythm, JVD, +S1, +S2, Systolic Murmur (holosystolic murmur, heard loudest in mitral valve area as well as tricuspid area) - GI/Abdominal Exam GI & Abdominal Exam: Distended (ascites), Normal Bowel Sounds, Organomegaly (liver edge is 4 finger breadths from costophrenic angle), Soft. absent: Guarding, Rebound, Rigid, tenderness - Extremities Exam Extremities exam: Positive for: pedal edema (Trace pitting edema to the midshin, pedal pulses present (2+ pulses in distal upper and lower extremities). Negative for: normal inspection - Neurological Exam Neurological exam: Alert, Oriented x3 - Psychiatric Exam Psychiatric exam: Normal Affect, Normal Mood - Skin Skin Exam: Dry, Normal Color, Warm Additional comments: (+) telangiectasias (+) jaundice Assessment and Plan - Assessment and Plan (Free Text) Assessment: This is a 52 year old female with PMH of CHF, valve replacement x2, questionable atrial fibrillation, HTN who presents to the ED for 1 week history of worsening abdominal distension, weight gain and bilateral leg edema. Found to have hepatic congestion causing liver cirrhosis and worsening of HFpEF. Right Heart Failure Exacerbation Hx Mitral and Aortic Bioprosthetic Valve Replacement * EKG upon admission shows Atrial Fibrillation * CXR upon admission shows s/p sterniotomy, cardiomegaly, pulmonary edema * Echocardiogram (03/16/18): EF 55-60%, flattened septum consistent with right ventricle volume and pressure overload, right ventricle is severely dilated. RV systolic function is moderately reduced. Left atrium is dilated 6.6cm. Right atrium is moderately dilated. Aortic valve: Bioprosthesis leaflets are thickened, but move well. Bioprosthetic Mitral v=Valve with mean gradient of 8.6 mmHg. Mitral regurgitation is mild to moderate. Severe Tricuspid regurgitation. Moderate Pulmonary Hypertension. Ascending aorta is mildly dilated, 4.1cm. Dilated IVC with poor inspiration collapse is consistent with elevated right atrial pressure * Cardiology (Dr. Mims) consulted: NO need for JONATHAN at this time * Monitor I&O, Head of bed at 40 degrees Meds * Lasix 20 mg IV Q12h * Lisinopril 5 mg PO daily * Metoprolol 12.5 mg PO 2x/day * Warfarin 5 mg po @ 1800 tonight again * Heparin Drip as bridge to warfarin * Aldactone held secondary to low BP * Simethicone given once Cirrhosis/Congestion of Liver/Ascited Likely Secondary to Right Heart Failure * G Consulted Dr Ifeanyi aguiar recs * T. Bili, AST and Alkaline Phospatase are elevated * Paracentesis with IR (03/20/18) * 2L of straw colored fluid removed * Hepatitis Panel is negative * HIV is negative * Abdominal u/s (03/15/17): Cirrhosis of liver and abdominal ascites. 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 * Bedside Paracentesis attempted by Medicine Team 03/17/18 after giving 1 unit FFP and SC Vitamin K 10 mg and holding Warfarin (procedure was explained and risk/benefits explained and consent was obtained and placed in chart): only 100 ml of clear yellow fluid was able to be removed and sent to lab for analysis: Culture, Albumin, LDH, Glucose, Total Protein, Cell Count w/Differential, and Cytology Urinary retention (03/19) Renal /Bladder US shows retaining 260cc urine, no hydronephrosis no stones straight cath monitor strict I&Os Consider Nephro consult for retention Hx Atrial Fibrillation * Goal INR should be 2.5 to 3.5 * Continue to monitor INR * Make sure some one from dietary has provided patient with Warfarin diet recommendations * Warfarin will be bridged with Heparin drip pending PTT Bilateral Lower Extremity Edema * Likely due to leakage of hemosiderin into subcutaneous tissue from edema secondary to Right Heart Failure * Patient was placed on Clomitrazole topical BID upon admission but this was discontinued as this is not a fungal infection * Bilateral LE wrapped in soy bandages, PAT stockings ordered, and patient instructed to keep extremities elevated while in bed PPx: GI ppx: no indication at this time VTE ppx contraindicated as pt is on Warfarin and INR is elevated Colace 100 mg PO 3x/day to help with bowel movements Disposition: Once INR therapeutic, patient should be discharged and instructed to follow up with her PMD and Machine Whitener in [place] (both seen 2 months ago as per patient).
[2018-03-22 07:24] LABS: BASO # 0.1 K/uL (0.0-0.2); BASO % 1.4 % (0.0-2.0); EOS # 0.2 K/uL (0.0-0.7); EOS % 2.6 % (0.0-4.0); HEMOGLOBIN 15.2 g/dL (11.0-16.0); LYMPH # 1.6 K/uL (1.0-4.3); LYMPH % 20.5 % (20.0-40.0); MEAN CELL VOLUME 93.9 fL (81.0-99.0); MEAN CORPUSCULAR HEMOGLOBIN 29.6 pg (27.0-31.0); MEAN CORPUSCULAR HGB CONC 31.5 g/dL (33.0-37.0); MEAN PLATELET VOLUME 9.5 fL (7.2-11.7); MONO # 0.6 K/uL (0.0-0.8); MONO % 8.1 % (0.0-10.0); NEUT # 5.3 K/uL (1.8-7.0); NEUT % 67.4 % (50.0-75.0); NRBC % 0.2 % (0.0-2.0); RBC 5.14 Mil/uL (3.80-5.20); RED CELL DISTRIBUTION WIDTH 17.7 % (11.5-14.5); WHITE BLOOD COUNT 7.8 K/uL (4.8-10.8)
[2018-03-22] MEDS: Heparin25000 units/250ml 1/2NS 25,000 UNITS/250 ML BAG IV PRN (11:57)
[2018-03-22] MEDS: Potassium Chloride 20 mEq ER Tab PO SCH (12:01)
[2018-03-22] MEDS: Vitamins A & D Oint UD Foilpak TOP SCH ×2 (12:01→18:49)
[2018-03-22] MEDS ORDERED: Albuterol-Ipratrop 3 mg / 0.5 (3 ml) UD INH STA (14:27)
--- NOTE | 2018-03-22 15:28 | RAD ---
Date of service: 03/22/2018 HISTORY: Chest pressure COMPARISON: 03/15/2018 FINDINGS: LUNGS: The lungs are well inflated. There is mild pulmonary venous congestion. There is discoid atelectasis/scarring in the left mid lung. No focal consolidation. PLEURA: No pleural effusions or pneumothorax. CARDIOVASCULAR: Persistent severe cardiomegaly. Status post median sternotomy. No aortic atherosclerotic calcifications present. OSSEOUS STRUCTURES: Within normal limits for the patient's age. VISUALIZED UPPER ABDOMEN: Normal. OTHER FINDINGS: None. IMPRESSION: Severe cardiomegaly. No active pulmonary disease.
[2018-03-22 16:16] LABS: CK-MB 0.65 ng/mL (0.0-3.38)
[2018-03-22] MEDS ORDERED: Alum-Mag Hydrox-Simethicone Susp (30 mL) PO STA (23:17)
[2018-03-23] MEDS: Ipratropium 0.02% Inhal Soln (0.5 mg/2.5 ml) UD IH SCH ×4 (02:49→20:11)
--- NOTE | 2018-03-23 05:34 | CP.PCM.PN ---
Subjective - Date & Time of Evaluation Date of Evaluation: 03/23/18 Time of Evaluation: 05:28 - Subjective Subjective: HOSPITALIST SERVICE Pt s/e at bedside, complaints of nausea and vomiting, pt also has low back pain, improved with zofran and flexiril, sleeping now. denies CP sOB Objective - Vital Signs/Intake and Output Vital Signs (last 24 hours): Temp Pulse Resp BP Pulse Ox 98.0 F 80 20 118/92 H 97 03/22/18 23:15 03/22/18 23:15 03/22/18 23:15 03/22/18 23:15 03/22/18 23:15 Intake and Output: 03/22/18 03/23/18 18:59 06:59 Output Total 275 350 Balance -275 -350 - Medications Medications: Current Medications Docusate Sodium (Colace) 100 mg PO TID [facility] Last Admin: 03/22/18 18:38 Dose: 100 mg Furosemide (Lasix) 20 mg IVP Q12H [facility] Last Admin: 03/22/18 18:39 Dose: 20 mg Heparin Sodium/Sodium Chloride (Heparin 85994 Units/250ml 1/2 Normal Saline) 25,000 units in 250 mls @ 6.03 mls/hr IV .Q24H PRN; Protocol PRN Reason: PROTOCOL Last Admin: 03/22/18 11:57 Dose: 7 units/kg/hr, 6.03 mls/hr Ipratropium [place] (Atrovent) 0.5 mg IH RQ6 [facility] Last Admin: 03/23/18 02:49 Dose: Not Given Lidocaine (Lidoderm) 1 ea TD DAILY [facility] Lisinopril (Zestril) 5 mg PO DAILY [facility] Last Admin: 03/22/18 12:01 Dose: 5 mg Metoprolol Tartrate (Lopressor) 12.5 mg PO BID [facility] Last Admin: 03/22/18 18:48 Dose: 12.5 mg Potassium Chloride (K-Dur 20 Meq Er Tab) 40 meq PO DAILY [facility] Last Admin: 03/22/18 12:01 Dose: 40 meq Vitamin A (Vitamin A & D Oint Ud Foilpak) 1 ea TOP BID [facility] Last Admin: 03/22/18 18:49 Dose: 1 ea - Labs Labs: 03/22/18 06:22 03/22/18 06:22 PT 16.7 SECONDS (9.7-12.2) H 03/22/18 06:22 INR 1.5 03/22/18 06:22 APTT 40 SECONDS (21-34) H D 03/23/18 00:37 - Additional Findings Additional findings: - Constitutional Appears: Non-toxic, No Acute Distress - Head Exam Head Exam: ATRAUMATIC, NORMAL INSPECTION - Eye Exam Eye Exam: EOMI, Scleral icterus (slight) - ENT Exam ENT Exam: Mucous Membranes Moist - Respiratory Exam Respiratory Exam: Rales (at the bases bilaterally). absent: Rhonchi, Wheezes, Respiratory Distress, Stridor - Cardiovascular Exam Cardiovascular Exam: Tachycardia, Irregular Rhythm, JVD, +S1, +S2, Systolic Murmur (holosystolic murmur, heard loudest in mitral valve area as well as tricuspid area) - GI/Abdominal Exam GI & Abdominal Exam: Distended (ascites), Normal Bowel Sounds, Organomegaly (liver edge is 4 finger breadths from costophrenic angle), Soft. absent: Guarding, Rebound, Rigid, tenderness - Extremities Exam Extremities exam: Positive for: pedal edema (Trace pitting edema to the midshin, pedal pulses present (2+ pulses in distal upper and lower extremities). Negative for: normal inspection - Neurological Exam Neurological exam: Alert, Oriented x3 - Psychiatric Exam Psychiatric exam: Normal Affect, Normal Mood - Skin Skin Exam: Dry, Normal Color, Warm Additional comments: (+) telangiectasias (+) jaundice Assessment and Plan - Assessment and Plan (Free Text) Assessment: This is a 52 year old female with PMH of CHF, valve replacement x2, questionable atrial fibrillation, HTN who presents to the ED for 1 week history of worsening abdominal distension, weight gain and bilateral leg edema. Found to have hepatic congestion causing liver cirrhosis and worsening of HFpEF. Right Heart Failure Exacerbation Hx Mitral and Aortic Bioprosthetic Valve Replacement * EKG upon admission shows Atrial Fibrillation * CXR upon admission shows s/p sterniotomy, cardiomegaly, pulmonary edema * Echocardiogram (03/16/18): EF 55-60%, flattened septum consistent with right kevin tricle volume and pressure overload, right ventricle is severely dilated. RV systolic function is moderately reduced. Left atrium is dilated 6.6cm. Right atrium is moderately dilated. Aortic valve: Bioprosthesis leaflets are thickened, but move well. Bioprosthetic Mitral v=Valve with mean gradient of 8.6 mmHg. Mitral regurgitation is mild to moderate. Severe Tricuspid regurgitation. Moderate Pulmonary Hypertension. Ascending aorta is mildly dilated, 4.1cm. Dilated IVC with poor inspiration collapse is consistent with elevated right atrial pressure * Cardiology (Dr. Mims) consulted: NO need for JONATHAN at this time * Monitor I&O, Head of bed at 40 degrees Meds * Lasix 20 mg IV Q12h * Lisinopril 5 mg PO daily * Metoprolol 12.5 mg PO 2x/day * Warfarin 5 mg po @ 1800 tonight again * Heparin Drip as bridge to warfarin * Aldactone held secondary to low BP * Simethicone given once Cirrhosis/Congestion of Liver/Ascited Likely Secondary to Right Heart Failure * G Consulted Dr Ifeanyi felton * T. Bili, AST and Alkaline Phospatase are elevated * Paracentesis with IR (03/20/18) * 2L of straw colored fluid removed * Hepatitis Panel is negative * HIV is negative * Abdominal u/s (03/15/17): Cirrhosis of liver and abdominal ascites. 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 * Bedside Paracentesis attempted by Medicine Team 03/17/18 after giving 1 unit FFP and SC Vitamin K 10 mg and holding Warfarin (procedure was explained and risk/benefits explained and consent was obtained and placed in chart): only 100 ml of clear yellow fluid was able to be removed and sent to lab for analysis: Culture, Albumin, LDH, Glucose, Total Protein, Cell Count w/Differential, and Cytology Urinary retention (03/19) Renal /Bladder US shows retaining 260cc urine, no hydronephrosis no s tones straight cath monitor strict I&Os Consider Nephro consult for retention Hx Atrial Fibrillation * Goal INR should be 2.5 to 3.5 * Continue to monitor INR * Make sure some one from dietary has provided patient with Warfarin diet recommendations * Warfarin will be bridged with Heparin drip pending PTT Bilateral Lower Extremity Edema * Likely due to leakage of hemosiderin into subcutaneous tissue from edema secondary to Right Heart Failure * Patient was placed on Clomitrazole topical BID upon admission but this was discontinued as this is not a fungal infection * Bilateral LE wrapped in soy bandages, PAT stockings ordered, and patient instructed to keep extremities elevated while in bed PPx: GI ppx: no indication at this time VTE ppx contraindicated as pt is on Warfarin and INR is elevated Colace 100 mg PO 3x/day to help with bowel movements Disposition: Once INR therapeutic, patient should be discharged and instructed to follow up with her PMD and Dental Ceramist Assistant in [place] (both seen 2 months ago as per patient).
[2018-03-23 06:49] LABS: TOTAL PROTEIN PERITONEAL FLUID 3.1 g/dL
[2018-03-23 08:44] LABS: BASO # 0.1 K/uL (0.0-0.2); BASO % 1.4 % (0.0-2.0); EOS # 0.1 K/uL (0.0-0.7); LYMPH # 1.5 K/uL (1.0-4.3); LYMPH % 17.3 % (20.0-40.0); MEAN CELL VOLUME 93.6 fL (81.0-99.0); MEAN CORPUSCULAR HEMOGLOBIN 29.6 pg (27.0-31.0); MEAN CORPUSCULAR HGB CONC 31.6 g/dL (33.0-37.0); MEAN PLATELET VOLUME 9.7 fL (7.2-11.7); MONO # 0.8 K/uL (0.0-0.8); MONO % 9.1 % (0.0-10.0); NEUT # 6.1 K/uL (1.8-7.0); NEUT % 71.2 % (50.0-75.0); NRBC % 0.3 % (0.0-2.0); RBC 5.39 Mil/uL (3.80-5.20); RED CELL DISTRIBUTION WIDTH 17.7 % (11.5-14.5); WHITE BLOOD COUNT 8.5 K/uL (4.8-10.8)
[2018-03-23 08:56] LABS: INR 1.6; PROTHROMBIN TIME 17.9 SECONDS (9.7-12.2)
[2018-03-23] MEDS: Potassium Chloride 20 mEq ER Tab PO SCH (09:32)
[2018-03-23] MEDS: Lidocaine 5% Patch TD SCH (09:37)
[2018-03-23 09:46] LABS: ALB/GLOB RATIO 1.2 (1.0-2.1); ALBUMIN 3.7 g/dL (3.5-5.0)
[2018-03-23 10:47] LABS: CALCIUM 9.3 mg/dl (8.6-10.4)
[2018-03-23] MEDS: Heparin25000 units/250ml 1/2NS 25,000 UNITS/250 ML BAG IV PRN (11:02)
[2018-03-23] MEDS: Vitamins A & D Oint UD Foilpak TOP SCH ×2 (11:47→17:45)
[2018-03-24] MEDS: Ipratropium 0.02% Inhal Soln (0.5 mg/2.5 ml) UD IH SCH ×4 (03:05→20:19)
[2018-03-24 07:27] LABS: BASO # 0.1 K/uL (0.0-0.2); BASO % 1.7 % (0.0-2.0); EOS # 0.1 K/uL (0.0-0.7); EOS % 1.8 % (0.0-4.0); HEMOGLOBIN 14.9 g/dL (11.0-16.0); LYMPH # 1.5 K/uL (1.0-4.3); LYMPH % 18.8 % (20.0-40.0); MEAN CELL VOLUME 93.3 fL (81.0-99.0); MEAN CORPUSCULAR HEMOGLOBIN 29.4 pg (27.0-31.0); MEAN CORPUSCULAR HGB CONC 31.5 g/dL (33.0-37.0); MEAN PLATELET VOLUME 9.4 fL (7.2-11.7); MONO # 0.8 K/uL (0.0-0.8); MONO % 9.4 % (0.0-10.0); NEUT # 5.4 K/uL (1.8-7.0); NEUT % 68.3 % (50.0-75.0); NRBC % 0.2 % (0.0-2.0); RBC 5.06 Mil/uL (3.80-5.20); RED CELL DISTRIBUTION WIDTH 17.5 % (11.5-14.5); WHITE BLOOD COUNT 7.9 K/uL (4.8-10.8)
[2018-03-24 07:37] LABS: PROTHROMBIN TIME 22.1 SECONDS (9.7-12.2)
[2018-03-24 08:15] LABS: ALB/GLOB RATIO 1.2 (1.0-2.1); ALBUMIN 3.4 g/dL (3.5-5.0); CALCIUM 9.4 mg/dl (8.6-10.4)
[2018-03-24] MEDS: Vitamins A & D Oint UD Foilpak TOP SCH ×2 (09:14→17:48)
[2018-03-24] MEDS: Lidocaine 5% Patch TD SCH (09:15)
[2018-03-24] MEDS: Potassium Chloride 20 mEq ER Tab PO SCH (10:10)
--- NOTE | 2018-03-24 18:20 | CARD ---
APPROVED REPORT Date of service: 03/15/2018 EKG Measurement Heart [id number] <Conclusion> Atrial fibrillation Left axis deviation Right bundle branch block Cannot rule out Inferior infarct, age undetermined Abnormal ECG
--- NOTE | 2018-03-24 18:21 | CARD ---
APPROVED REPORT Date of service: 03/15/2018 EKG Measurement Heart [id number] <Conclusion> Atrial fibrillation Left axis deviation Right bundle branch block Inferior infarct, age undetermined Abnormal ECG
[2018-03-25 00:15] VITALS: O2SAT 96
[2018-03-25] MEDS: Ipratropium 0.02% Inhal Soln (0.5 mg/2.5 ml) UD IH SCH ×3 (04:48→13:20)
[2018-03-25] MEDS: Heparin25000 units/250ml 1/2NS 25,000 UNITS/250 ML BAG IV PRN (05:36)
[2018-03-25 06:50] LABS: BASO # 0.1 K/uL (0.0-0.2); BASO % 1.7 % (0.0-2.0); EOS # 0.2 K/uL (0.0-0.7); EOS % 2.8 % (0.0-4.0); HEMOGLOBIN 15.4 g/dL (11.0-16.0); LYMPH # 1.5 K/uL (1.0-4.3); LYMPH % 20.5 % (20.0-40.0); MEAN CELL VOLUME 92.7 fL (81.0-99.0); MEAN CORPUSCULAR HEMOGLOBIN 29.2 pg (27.0-31.0); MEAN CORPUSCULAR HGB CONC 31.5 g/dL (33.0-37.0); MEAN PLATELET VOLUME 9.2 fL (7.2-11.7); MONO # 0.7 K/uL (0.0-0.8); MONO % 8.7 % (0.0-10.0); NEUT % 66.3 % (50.0-75.0); NRBC % 0.2 % (0.0-2.0); RBC 5.26 Mil/uL (3.80-5.20); RED CELL DISTRIBUTION WIDTH 17.8 % (11.5-14.5); WHITE BLOOD COUNT 7.6 K/uL (4.8-10.8)
[2018-03-25 06:58] LABS: INR 3.1
[2018-03-25 07:02] LABS: ALB/GLOB RATIO 1.2 (1.0-2.1); ALBUMIN 3.5 g/dL (3.5-5.0); CALCIUM 9.1 mg/dl (8.6-10.4)
--- NOTE | 2018-03-25 07:31 | CP.PCM.DIS ---
<Yunior Burns - Last Filed: 03/26/18 15:04> Provider - Provider Date of Admission: 03/15/18 02:19 Attending physician: Stephany Ho DO Consults: 03/15/18 04:10 Cardiology Consult Routine Comment: Consulting Provider: Jake Mims Consulting Physician: Jake Mims Reason for Consult: chf exacerbation 03/15/18 15:10 Nursing Referral for Wound Care Routine Comment: Physician Instructions: Reason For Exam: please assess bilateral lower extremities 03/18/18 13:40 Gastroenterology Consult Routine Comment: Consulting Provider: Ernesto Suggs Consulting Physician: Ernesto Suggs Reason for Consult: ascites, chirrosis, was on coumadin, hx of RHf Time Spent in preparation of Discharge (in minutes): 35 Diagnosis - Discharge Diagnosis (1) H/O heart valve replacement with bioprosthetic valve Status: Acute (2) Hepatic congestion Status: Acute (3) Atrial fibrillation Status: Acute (4) HTN (hypertension) Status: Acute (5) (HFpEF) heart failure with preserved ejection fraction Status: Acute (6) Liver cirrhosis Status: Acute (7) CHF (congestive heart failure) Status: Acute Hospital Course - Lab Results Lab Results: Micro Results 03/17/18 20:07 Ascitic Fluid Gram Stain - Final 03/17/18 20:07 Ascitic Fluid Body Fluid Culture - Final No growth. Most Recent Lab Values WBC 7.6 K/uL (4.8-10.8) 03/25/18 06:38 RBC 5.26 Mil/uL (3.80-5.20) H 03/25/18 06:38 Hgb 15.4 g/dL (11.0-16.0) 03/25/18 06:38 Hct 48.7 % (34.0-47.0) H 03/25/18 06:38 MCV 92.7 fL (81.0-99.0) 03/25/18 06:38 MCH 29.2 pg (27.0-31.0) 03/25/18 06:38 MCHC 31.5 g/dL (33.0-37.0) L 03/25/18 06:38 RDW 17.8 % (11.5-14.5) H 03/25/18 06:38 Plt Count 341 K/uL (130-400) 03/25/18 06:38 MPV 9.2 fL (7.2-11.7) 03/25/18 06:38 Neut % (Auto) 66.3 % (50.0-75.0) 03/25/18 06:38 Lymph % (Auto) 20.5 % (20.0-40.0) 03/25/18 06:38 Young % (Auto) 8.7 % (0.0-10.0) 03/25/18 06:38 Eos % (Auto) 2.8 % (0.0-4.0) 03/25/18 06:38 Baso % (Auto) 1.7 % (0.0-2.0) 03/25/18 06:38 Neut # (Auto) 5.0 K/uL (1.8-7.0) 03/25/18 06:38 Lymph # (Auto) 1.5 K/uL (1.0-4.3) 03/25/18 06:38 Young # (Auto) 0.7 K/uL (0.0-0.8) 03/25/18 06:38 Eos # (Auto) 0.2 K/uL (0.0-0.7) 03/25/18 06:38 Baso # (Auto) 0.1 K/uL (0.0-0.2) 03/25/18 06:38 PT 34.0 SECONDS (9.7-12.2) H D 03/25/18 06:38 INR 3.1 H* D 03/25/18 06:38 APTT 93 SECONDS (21-34) H D 03/25/18 06:38 Sodium 130 mmol/L (132-148) L 03/25/18 06:38 Potassium 5.0 mmol/L (3.6-5.2) 03/25/18 06:38 Chloride 99 mmol/L (98-107) 03/25/18 06:38 Carbon Dioxide 21 mmol/L (22-30) L 03/25/18 06:38 Anion Gap 15 (10-20) 03/25/18 06:38 BUN 28 mg/dL (7-17) H 03/25/18 06:38 Creatinine 1.2 mg/dL (0.7-1.2) 03/25/18 06:38 Est GFR ( Amer) 57 03/25/18 06:38 Est GFR (Non-Af Amer) 47 03/25/18 06:38 POC Glucose (mg/dL) 130 mg/dL (65-110) H 03/21/18 16:06 Random Glucose 100 mg/dL (65-105) 03/25/18 06:38 Calcium 9.1 mg/dl (8.6-10.4) 03/25/18 06:38 Phosphorus 4.5 mg/dL (2.5-4.5) 03/25/18 06:38 Magnesium 2.2 mg/dL (1.6-2.3) 03/25/18 06:38 Total Bilirubin 2.5 mg/dL (0.2-1.3) H 03/25/18 06:38 Direct Bilirubin 0.6 mg/dL (0.0-0.4) H 03/15/18 05:01 AST 38 U/L (14-36) H 03/25/18 06:38 ALT 23 U/L (9-52) 03/25/18 06:38 Alkaline Phosphatase 139 U/L (38-126) H 03/25/18 06:38 Total Creatine Kinase 28 U/L (30-135) L 03/22/18 15:42 CK-MB (Mass) 0.65 ng/mL (0.0-3.38) 03/22/18 15:42 Troponin I < 0.0120 ng/mL (0.00-0.120) 03/22/18 15:42 NT-Pro-B Natriuret Pep 946 pg/mL (0-900) H 03/15/18 00:55 Total Protein 6.5 g/dL (6.3-8.3) 03/25/18 06:38 Albumin 3.5 g/dL (3.5-5.0) 03/25/18 06:38 Globulin 3.0 gm/dL (2.2-3.9) 03/25/18 06:38 Albumin/Globulin Ratio 1.2 (1.0-2.1) 03/25/18 06:38 Triglycerides 77 mg/dL (0-149) 03/16/18 07:03 Cholesterol 147 mg/dL (0-199) 03/16/18 07:03 LDL Cholesterol Direct 92 mg/dL (0-129) 03/16/18 07:03 HDL Cholesterol 29 mg/dL (30-70) L 03/16/18 07:03 Free T4 1.85 ng/dL (0.78-2.19) 03/16/18 07:03 TSH 3rd Generation 1.07 mIU/L (0.46-4.68) 03/16/18 07:03 Urine HCG, Qual Negative (NEGATIVE) 03/20/18 05:15 Fluid Source Pleural/thoracentesi 03/17/18 20:07 Fluid Appearance Cloudy (CLEAR) 03/17/18 20:07 Fluid WBC 293.0 /mm3 (0.0-300.0) 03/17/18 20:07 Fluid RBC 4553.0 /mm3 (0.0-0.0) H 03/17/18 20:07 Fluid Tot Cell Count 100 (0-0) H 03/17/18 20:07 Fluid Neutrophils 12.0 % (0-0) H 03/17/18 20:07 Fluid Lymphocytes 80.0 % (0-0) H 03/17/18 20:07 Fld Monocyte/Macrophag 8 % (0-0) H 03/17/18 20:07 Fluid Albumin 1.6 g/dL 03/20/18 09:51 Fluid Comment 03/17/18 20:07 Peritoneal Tot Protein 3.1 g/dL 03/20/18 09:51 Peritoneal LDH 111 U/L (<63) H 03/17/18 20:07 Peritoneal Glucose 104 mg/dL 03/20/18 09:51 SALAS Screen Negative (Negative) 03/18/18 07:46 Hepatitis A IgM Ab Negative (NEGATIVE) 03/16/18 07:03 Hep Bs Antigen Negative (NEGATIVE) 03/16/18 07:03 Hep B Core IgM Ab Negative (NEGATIVE) 03/16/18 07:03 Hepatitis C Antibody Negative (NEGATIVE) 03/16/18 07:03 HIV 1&2 Antibody Screen Negative (NEGATIVE) 03/16/18 07:03 Blood Type B POSITIVE 03/17/18 13:30 Blood Type Confirm B POSITIVE 03/17/18 13:30 Antibody Screen Negative 03/17/18 13:30 - Hospital Course Hospital Course: On admission: This is a 52 year old female with PMH of CHF, valve replacement x2, questionable atrial fibrillation, HTN who presents to the ED for 1 week history of worsening abdominal distension, weight gain and bilateral leg edema. Pt reports a chronic cough for many years, which is dry, but recently worsening for the past 1 week, exacerbated by walking. Pt endorses orthopnea for many years as well, requiring 2-3 pillows. She states that she has had a decreased appetite for the past 1 week, but has gained 20 pounds (160 lb to 180 lb). Leg edema is described as increased "liquid" in the bilateral legs with redness, itchiness and a stretching sensation. Denies fever, chills, chest pain, palpitations, abdominal pain, n/v/d, new socks, skin lotion, falls. [place] a more than 3 month trip. As per pt, she has had a thoracentesis in the past (unsure when). Hospital course: Pt started on lasix, bb, ACEi, warfarin. Lower extremity edema improved with lasix, and erythema resolved as well. Cardiology was consulted. GI was consulted for hepatomegaly and abnormal LFTs, Tbili. It was determined this is from right heart failure. Pt's symptoms improved with aformentioned medications, but the required a paracentesis due to ascites and abdominal discomfort. IR was consulted and removed 2L. Pt's condition continued to improve. Her warfarin was reversed for the paracentesis, and heparin gtt was started to bridge to coumadin. She was kept inpatient, until therapeutic range of INR (2.5-3.5) was reached for her valvular afib. On discharge interview, pt is resting comfortably without any complaints. She denies fever, chills, chest pain, sob, abdominal pain, n/v/d, dizziness, lightheadedness, syncope,. Images: Echocardiogram showed right ventricle is severely dilated. RV systolic function is moderately reduced. Left atrium is dilated. Right atrium is moderately dilated. Aortic valve: Bioprosthesis leaflets are thickened, but move well. Bioprosthetic Mitral Valve with mean gradient of 8.6 mmHg. Mitral regurgitation is mild to moderate. Severe Tricuspid regurgitation. Moderate Pulmonary Hypert ension. Ascending aorta is mildly dilated, 4.1cm. Elevated right atrial pressure. Abdominal u/s: Cirrhosis of liver and abdominal ascites This is a summary of the hospital course. Please see EMR for full details. Discharge Exam - Additional Findings Additional findings: - Constitutional Appears: Non-toxic, No Acute Distress - Head Exam Head Exam: ATRAUMATIC, NORMAL INSPECTION - Eye Exam Eye Exam: EOMI, minimal scleral icterus - ENT Exam ENT Exam: Mucous Membranes Moist - Respiratory Exam Respiratory Exam: CTA bilaterally. absent: Rales, Rhonchi, Wheezes, Respiratory Distress, Stridor - Cardiovascular Exam Cardiovascular Exam: Irregular Rhythm, +S1, +S2, Systolic Murmur (holosystolic murmur, heard loudest in mitral valve area as well as tricuspid area and aortic area) - GI/Abdominal Exam GI & Abdominal Exam: Normal Bowel Sounds, Hepatomegaly, Soft. absent: Guarding, Rebound, Rigid, tenderness - Extremities Exam Extremities exam: Normal inspection. No pedal edema, no tenderness, no calf tenderness, no erythema. 2+ pulses in distal upper and lower extremities bilaterally. - Neurological Exam Neurological exam: Alert, Oriented x3 - Psychiatric Exam Psychiatric exam: Normal Affect, Normal Mood - Skin Skin Exam: Dry, Normal Color, Warm Additional comments: (+) minimal telangiectasias (+) minimal jaundice Discharge Plan - Discharge Medications Prescriptions: RX: Docusate [Colace] 100 mg PO TID #30 cap Furosemide [Lasix] 20 mg PO DAILY #30 tablet RX: Lisinopril [Zestril] 5 mg PO DAILY #30 tab RX: Metoprolol Tartrate [Lopressor] 12.5 mg PO BID #60 tab Spironolactone [Aldactone] 25 mg PO DAILY #30 tab RX: Warfarin [Coumadin] 2.5 mg PO 1800 #5 tab - Follow Up Plan Condition: GOOD Disposition: HOME/ ROUTINE Instructions: Heart Healthy Diet, Heart Failure, Adult (DC), Vitamin K Diet, Docusate, Furosemide, Metoprolol, Warfarin, Going Home on Blood Thinners , Heart Failure Exercise Guide Additional Instructions: Patient is medically stable for discharge home as per Dr. Senior. Patient provided with prescriptions for Lasix 20 mg PO once daily, Aldactone 25 mg PO once daily, Metoprolol tartrate 12.5 mg PO twice a day, Lisinopril 5 mg PO once daily, Colace 100 mg as needed for constipation, Warfarin 2.5 mg PO once every other day. Patient should follow up with her foundry helper within 1 week of discharge. Pt should follow up with her primary medical doctor within 1 week of discharge. Pt will be given Warfarin 2.5 mg today, and she was instructed to take 5 mg claude orrow. She was informed to follow up with her primary medical doctor on Sunday (03/27/18) for blood draw to check her INR level. Patient expresses understanding of the need to follow up with these physicians and to check her INR. Should symptoms worsen, please return to the nearest emergency department for evaluation. Instructions explained to the Patient, who understands and agrees with discharge plan. El paciente se encuentra mdicamente estable para el tammy hospitalaria segn el Dr. Senior. El paciente recibi prescripciones de Lasix 20 mg PO adrien vez al da, Aldactone 25 mg PO adrien vez al daMetoprolol tartrato 12,5 mg PO dos veces al da, Lisinopril 5 mg PO adrien vez al da, Colace 100 mg segn sea necesario para el estreimiento, Warfarina 2,5 mg PO adrien vez cada dos tariq. El paciente debe hacer un seguimiento con fortune cardilogo dentro de la primera semana despus del tammy. Pt debe hacer un seguimiento con [facility] mdico de cabecera dentro de la primera semana despus del tammy. Pt recibir Warfarin 2.5 mg hoy, y se le indic que tomara 5 mg maana. Se le inform que deba hacer un seguimiento con [facility] mdico de cabecera el mircoles (27/03/18) para que le extrajeran la nettie y comprobar fortune nivel de INR. La paciente expresa fortune comprensin de la necesidad de hacer un seguimiento con estos mdicos y de revisar fortune INR. Si los sntomas empeoran, vuelva al departamento de emergencias ms cercano para fortune evaluacin. Instrucciones explicadas al paciente, que entiende y est de acuerdo con el plan de tammy. Referrals: Jake Mims MD [Staff Provider] - Ernesto Suggs [Staff Provider] - <Ike Senior - Last Filed: 03/26/18 15:23> Provider - Provider Date of Admission: 03/15/18 02:19 Attending physician: Stephany Ho DO Consults: 03/15/18 04:10 Cardiology Consult Routine Comment: Consulting Provider: Jake Mims Consulting Physician: Jake Mims Reason for Consult: chf exacerbation 03/15/18 15:10 Nursing Referral for Wound Care Routine Comment: Physician Instructions: Reason For Exam: please assess bilateral lower extremities 03/18/18 13:40 Gastroenterology Consult Routine Comment: Consulting Provider: Ernesto Suggs Consulting Physician: Ernesto Suggs Reason for Consult: ascites, chirrosis, was on coumadin, hx of RHf Hospital Course - Lab Results Lab Results: Micro Results 03/17/18 20:07 Ascitic Fluid Gram Stain - Final 03/17/18 20:07 Ascitic Fluid Body Fluid Culture - Final No growth. Most Recent Lab Values WBC 7.6 K/uL (4.8-10.8) 03/25/18 06:38 RBC 5.26 Mil/uL (3.80-5.20) H 03/25/18 06:38 Hgb 15.4 g/dL (11.0-16.0) 03/25/18 06:38 Hct 48.7 % (34.0-47.0) H 03/25/18 06:38 MCV 92.7 fL (81.0-99.0) 03/25/18 06:38 MCH 29.2 pg (27.0-31.0) 03/25/18 06:38 MCHC 31.5 g/dL (33.0-37.0) L 03/25/18 06:38 RDW 17.8 % (11.5-14.5) H 03/25/18 06:38 Plt Count 341 K/uL (130-400) 03/25/18 06:38 MPV 9.2 fL (7.2-11.7) 03/25/18 06:38 Neut % (Auto) 66.3 % (50.0-75.0) 03/25/18 06:38 Lymph % (Auto) 20.5 % (20.0-40.0) 03/25/18 06:38 Young % (Auto) 8.7 % (0.0-10.0) 03/25/18 06:38 Eos % (Auto) 2.8 % (0.0-4.0) 03/25/18 06:38 Baso % (Auto) 1.7 % (0.0-2.0) 03/25/18 06:38 Neut # (Auto) 5.0 K/uL (1.8-7.0) 03/25/18 06:38 Lymph # (Auto) 1.5 K/uL (1.0-4.3) 03/25/18 06:38 Young # (Auto) 0.7 K/uL (0.0-0.8) 03/25/18 06:38 Eos # (Auto) 0.2 K/uL (0.0-0.7) 03/25/18 06:38 Baso # (Auto) 0.1 K/uL (0.0-0.2) 03/25/18 06:38 PT 34.0 SECONDS (9.7-12.2) H D 03/25/18 06:38 INR 3.1 H* D 03/25/18 06:38 APTT 93 SECONDS (21-34) H D 03/25/18 06:38 Sodium 130 mmol/L (132-148) L 03/25/18 06:38 Potassium 5.0 mmol/L (3.6-5.2) 03/25/18 06:38 Chloride 99 mmol/L (98-107) 03/25/18 06:38 Carbon Dioxide 21 mmol/L (22-30) L 03/25/18 06:38 Anion Gap 15 (10-20) 03/25/18 06:38 BUN 28 mg/dL (7-17) H 03/25/18 06:38 Creatinine 1.2 mg/dL (0.7-1.2) 03/25/18 06:38 Est GFR ( Amer) 57 03/25/18 06:38 Est GFR (Non-Af Amer) 47 03/25/18 06:38 POC Glucose (mg/dL) 130 mg/dL (65-110) H 03/21/18 16:06 Random Glucose 100 mg/dL (65-105) 03/25/18 06:38 Calcium 9.1 mg/dl (8.6-10.4) 03/25/18 06:38 Phosphorus 4.5 mg/dL (2.5-4.5) 03/25/18 06:38 Magnesium 2.2 mg/dL (1.6-2.3) 03/25/18 06:38 Total Bilirubin 2.5 mg/dL (0.2-1.3) H 03/25/18 06:38 Direct Bilirubin 0.6 mg/dL (0.0-0.4) H 03/15/18 05:01 AST 38 U/L (14-36) H 03/25/18 06:38 ALT 23 U/L (9-52) 03/25/18 06:38 Alkaline Phosphatase 139 U/L (38-126) H 03/25/18 06:38 Total Creatine Kinase 28 U/L (30-135) L 03/22/18 15:42 CK-MB (Mass) 0.65 ng/mL (0.0-3.38) 03/22/18 15:42 Troponin I < 0.0120 ng/mL (0.00-0.120) 03/22/18 15:42 NT-Pro-B Natriuret Pep 946 pg/mL (0-900) H 03/15/18 00:55 Total Protein 6.5 g/dL (6.3-8.3) 03/25/18 06:38 Albumin 3.5 g/dL (3.5-5.0) 03/25/18 06:38 Globulin 3.0 gm/dL (2.2-3.9) 03/25/18 06:38 Albumin/Globulin Ratio 1.2 (1.0-2.1) 03/25/18 06:38 Triglycerides 77 mg/dL (0-149) 03/16/18 07:03 Cholesterol 147 mg/dL (0-199) 03/16/18 07:03 LDL Cholesterol Direct 92 mg/dL (0-129) 03/16/18 07:03 HDL Cholesterol 29 mg/dL (30-70) L 03/16/18 07:03 Free T4 1.85 ng/dL (0.78-2.19) 03/16/18 07:03 TSH 3rd Generation 1.07 mIU/L (0.46-4.68) 03/16/18 07:03 Urine HCG, Qual Negative (NEGATIVE) 03/20/18 05:15 Fluid Source Pleural/thoracentesi 03/17/18 20:07 Fluid Appearance Cloudy (CLEAR) 03/17/18 20:07 Fluid WBC 293.0 /mm3 (0.0-300.0) 03/17/18 20:07 Fluid RBC 4553.0 /mm3 (0.0-0.0) H 03/17/18 20:07 Fluid Tot Cell Count 100 (0-0) H 03/17/18 20:07 Fluid Neutrophils 12.0 % (0-0) H 03/17/18 20:07 Fluid Lymphocytes 80.0 % (0-0) H 03/17/18 20:07 Fld Monocyte/Macrophag 8 % (0-0) H 03/17/18 20:07 Fluid Albumin 1.6 g/dL 03/20/18 09:51 Fluid Comment 03/17/18 20:07 Peritoneal Tot Protein 3.1 g/dL 03/20/18 09:51 Peritoneal LDH 111 U/L (<63) H 03/17/18 20:07 Peritoneal Glucose 104 mg/dL 03/20/18 09:51 SALAS Screen Negative (Negative) 03/18/18 07:46 Hepatitis A IgM Ab Negative (NEGATIVE) 03/16/18 07:03 Hep Bs Antigen Negative (NEGATIVE) 03/16/18 07:03 Hep B Core IgM Ab Negative (NEGATIVE) 03/16/18 07:03 Hepatitis C Antibody Negative (NEGATIVE) 03/16/18 07:03 HIV 1&2 Antibody Screen Negative (NEGATIVE) 03/16/18 07:03 Blood Type B POSITIVE 03/17/18 13:30 Blood Type Confirm B POSITIVE 03/17/18 13:30 Antibody Screen Negative 03/17/18 13:30 Attending/Attestation - Attestation I have personally seen and examined this patient.: Yes I have fully participated in the care of the patient.: Yes I have reviewed all pertinent clinical information, including history, physical exam and plan: Yes
[2018-03-25 08:52] VITALS: RESP 20
[2018-03-25] MEDS: Vitamins A & D Oint UD Foilpak TOP SCH (09:56)
[2018-03-25] MEDS: Lidocaine 5% Patch TD SCH (09:57)
[2018-03-25 16:22] VITALS: BP 108/77; PULSE 75; TEMP 97.8
== END 2018-03-25 16:15 | disposition home or self-care (01) | DRG 477 ==
LOC: C.ER 23:01 → C.9E 03-15 02:19 → C.5S 03-15 06:58
PROVIDERS: ADMIT Internal Medicine; ATTEND Hospitalist
PROC: 0W9G3ZX Drainage of Peritoneal Cavity, Percutaneous Approach, Diagnostic (ICD-10-PCS; principal; 2018-03-17)
PROC: 30233K1 Transfusion of Nonautologous Frozen Plasma into Peripheral Vein, Percutaneous Approach (ICD-10-PCS; 2018-03-17)
DX: I11.0 Hypertensive heart disease with heart failure (principal); K74.60 Unspecified cirrhosis of liver; R18.8 Other ascites; B37.2 Candidiasis of skin and nail; I27.20 Pulmonary hypertension, unspecified; I48.2 Chronic atrial fibrillation; I50.9 Heart failure, unspecified; I48.91 Unspecified atrial fibrillation; Z95.2 Presence of prosthetic heart valve